=== PATIENT | female | born 1985 | race Caucasian/White ===

== ENCOUNTER 2016-05-08 09:49 | Outpatient (CLI) | payer OTHER | END 2016-05-08 10:33 | disposition home or self-care (01) | LOC: LC 09:49 | PROVIDERS: ATTEND Specialist | PROC: 4A1HXCZ Monitoring of Products of Conception, Cardiac Rate, External Approach (ICD-10-PCS; principal; 2016-05-08) | DX: O24.419 Gestational diabetes mellitus in pregnancy, unspecified control (principal); Z3A.35 35 weeks gestation of pregnancy | CPT/HCPCS: 59025 ==

== ENCOUNTER 2016-05-16 15:41 | Outpatient (CLI) | payer OTHER ==
--- NOTE | 2016-05-16 16:17 | Non Stress Test Report ---
Non Stress Test Datetime Report Generated by CPN: 05/16/2016 16:16 DEMOGRAPHIC EGA NST: 33.5 INDICATION Indication for Study: Diabetes Mellitus; Ordered by Provider VITAL SIGNS Temperature - NST: 98.3 Pulse - NST: 103 RESP - NST: 17 NBPSYS NST: 110 NBPDIA NST: 58 MONITORING Monitor Explained: Monitor Explained; Test Explained; Patient Verbalized Understanding Time on Monitor: 05/08/2016 09:59 Time off Monitor: 05/08/2016 10:31 Time off Monitor: 05/08/2016 10:23 NST Duration: 32 NST INTERVENTIONS NST Interventions: PO Hydration; Oxytocin Challenge Test Physician Notified NST: C Mason CNM BABY A: [id number] BABY A Contraction Frequency : none FHR Baseline : 135 Accelerations : 15X15 Decelerations : None Variability : Moderate 6-25bpm NST Review: Meets Criteria for Reactive NST NST Review and Verified By : Crissy Keating, RN NST Results: Reactive NST REPORT Report Trigger: Send Report
--- NOTE | 2016-05-16 16:44 | Non Stress Test Report ---
Non Stress Test Datetime Report Generated by CPN: 05/16/2016 16:44 DEMOGRAPHIC EGA NST: 34.6 INDICATION Indication for Study: Ordered by Provider MONITORING Monitor Explained: Monitor Explained; Test Explained; Patient Verbalized Understanding Time on Monitor: 05/16/2016 16:18 Time off Monitor: 05/16/2016 16:41 NST Duration: 23 NST INTERVENTIONS NST Interventions: PO Hydration Physician Notified NST: ANDERSON BABY A Movement : Present Contraction Frequency : none FHR Baseline : 135 Accelerations : 15X15 Decelerations : None Variability : Moderate 6-25bpm NST Review: Meets Criteria for Reactive NST NST Review and Verified By : Yumiko Rasmussen RN NST Results: Reactive NST REPORT Report Trigger: Send Report
== END 2016-05-16 16:46 | disposition home or self-care (01) ==
LOC: LC 15:41
PROVIDERS: ATTEND Obstetrics & Gynecology
PROC: 4A1HXCZ Monitoring of Products of Conception, Cardiac Rate, External Approach (ICD-10-PCS; principal; 2016-05-16)
DX: Z34.93 Encounter for supervision of normal pregnancy, unspecified, third trimester (principal); Z36 Encounter for antenatal screening of mother; Z3A.34 34 weeks gestation of pregnancy
CPT/HCPCS: 59025

== ENCOUNTER 2016-06-16 08:37 | Inpatient (IN) | payer OTHER ==
[2016-06-16] MEDS ORDERED: PENICILLIN G-K 5 MILLION UNIT VIAL ONE (08:50)
[2016-06-16] MEDS ORDERED: PENICILLIN G POTASSIUM 5,000,000 UNIT in DEXTROSE 5%-WATER 100 ML IV ONE (08:51)
[2016-06-16] MEDS ORDERED: RINGERS SOLUTION,LACTATED 1,000 ML IV PRN (08:51)
[2016-06-16] MEDS ORDERED: RINGERS SOLUTION,LACTATED 1,000 ML IV ONE (08:51)
[2016-06-16] MEDS ORDERED: OXYTOCIN/NORMAL SALINE 20 UNIT/1,000 ML RTUINJ ONE (08:59)
[2016-06-16] MEDS ORDERED: MISOPROSTOL 0.2 MG TABLET ONE (08:59)
[2016-06-16] MEDS ORDERED: LIDOCAINE 1% INJ-PF (10 MG/ML) 30 ML SDV ONE (08:59)
[2016-06-16 09:48] LABS: APPEARANCE,URINE SLIGHTLY-CLOUDY; BILIRUBIN,URINE NEGATIVE (NEGATIVE); GLUCOSE, URINE NEGATIVE (NEGATIVE); KETONES,URINE NEGATIVE (NEGATIVE); LEUKOCYTE ESTERASE,URINE NEGATIVE (NEGATIVE); NITRITE,URINE NEGATIVE (NEGATIVE); PROTEIN,URINE 100 mg/dL (NEGATIVE); URINE SPECIFIC GRAVITY 1.019; UROBILINOGEN,URINE NEGATIVE mg/dL (<2.0)
[2016-06-16] MEDS ORDERED: BENZOCAINE/MENTHOL AEROSOL SPRAY 56 ML TOP PRN (09:51)
[2016-06-16] MEDS ORDERED: ZOLPIDEM TARTRATE 5 MG TABLET PO PRN (09:51)
[2016-06-16] MEDS ORDERED: DIBUCAINE 1% OINTMENT 28 GM TP PRN (09:51)
[2016-06-16] MEDS ORDERED: MEASLES,MUMPS&RUBELLA VACC/PF 0.5 ML VIAL SUBCUT PRN (09:51)
[2016-06-16] MEDS ORDERED: OXYTOCIN/NORMAL SALINE 1,000 ML IV PRN (09:51)
[2016-06-16] MEDS ORDERED: ACETAMINOPHEN WITH CODEINE #3 TABLET PO PRN (09:51)
[2016-06-16] MEDS ORDERED: DIPH/PERTUSS(ACELL)/TETANUS VAC/PF 0.5 ML SYR (>=10YO) IM PRN (09:51)
[2016-06-16] MEDS ORDERED: ACETAMINOPHEN WITH CODEINE #3 TABLET ONE (09:54)
--- NOTE | 2016-06-16 10:00 | L&D Flow Sheet ---
LD Flowsheet Datetime Report Generated by CPN: 06/16/2016 10:00 Datetime: 06/16/2016 09:45 NBP Sys/Pricila/Mean (mmHg): 127 (QS system process) : 76 (QS system process) : 95 (QS system process) Pulse: 82 (QS system process) Datetime: 06/16/2016 09:25 NBP Sys/Pricila/Mean (mmHg): 107 (QS system process) : 78 (QS system process) : 89 (QS system process) Pulse: 86 (QS system process) Datetime: 06/16/2016 09:23 Vital Signs Stage of : Recovery (Terri Vega RN) Respirations: 18 (Terri Vega RN) Datetime: 06/16/2016 09:13 Membrane Status: Ruptured (Terri Vega RN) Membranes Rupture Method: Spontaneous (Terri Vega RN) Amniotic Fluid Color: Clear (Terri Vega RN) Amniotic Fluid Amount: Small (Terri Vega RN) Amniotic Fluid Odor: Normal (Terri Baidy, RN) Datetime: 06/16/2016 09:12 Communication Communication Comments: Dr Griggs at bedside for delivery (Terri Baidy, RN) Datetime: 06/16/2016 09:09 Vaginal Exam Dilatation (cm): 10.0 (Terri Baidy, RN) Effacement (%): 100 (Terri Baidy, RN) Station: 1 (Terri Baidy, RN) Exam by: H Young RN (Terri Baidy, RN) Datetime: 06/16/2016 09:02 Stage 2 Pushing: Urge to Push (Marleny Young, RN) Datetime: 06/16/2016 08:58 Medications Antibiotics: Penicillin IV (Units) @ 5 million (Marleny Young, RN) Datetime: 06/16/2016 08:53 Communication Communication Comments: Dr Ortiz notified of pt in active labor 6cm, GBS positive and wanting to go natural, quick labor with 1st baby. Dr Ortiz on her way. (Terri Winstonkimberli, RN) Datetime: 06/16/2016 08:51 NBP Sys/Pricila/Mean (mmHg): 120 (QS system process) : 76 (QS system process) : 93 (QS system process) Pulse: 80 (QS system process) Datetime: 06/16/2016 08:48 Vaginal Exam Dilatation (cm): 6.0 (Marleny Vidal RN) Effacement (%): 90 (Marleny Young, RN) Station: 0 (Marleny Vidal RN) Exam by: Rl Vidal RN (Marleny Vidal, NAE)
[2016-06-16 10:15] LABS: URINE BARBITURATES SCREEN NEGATIVE; URINE METHADONE SCREEN NEGATIVE; URINE OPIATES LOW NEGATIVE; URINE PHENCYCLIDINE SCREEN NEGATIVE
[2016-06-16 10:23] LABS: ABSOLUTE LYMPHOCYTES (AUTO) 1.4 10^3/uL (0.5-4.7); ABSOLUTE MONOCYTES (AUTO) 0.4 10^3/uL (0.1-1.4); ABSOLUTE NEUT (AUTO) 9.8 10^3/uL (1.7-8.2); BASOPHILS % (AUTO) 0.2 % (0-2); EOSINOPHILS % (AUTO) 0.2 % (0-6); HEMATOCRIT 38.8 % (36.0-47.0); HEMOGLOBIN 13.1 g/dL (12.0-15.5); HGB HCT DIFFERENCE 0.5; LYMPHOCYTES % (AUTO) 11.8 % (13-45); MEAN CORPUSCULAR HGB CONC 33.7 g/dL (32.0-36.0); MEAN CORPUSCULAR VOLUME 89 fl (80-97); MONOCYTES % (AUTO) 3.1 % (3-13); RED BLOOD COUNT 4.35 10^6/uL (3.72-5.28); RED CELL DISTRIBUTION WIDTH 13.9 % (11.5-14.0); SEGMENTED NEUTROPHILS % (AUTO) 84.7 % (42-78); WHITE BLOOD COUNT 11.5 10^3/uL (4.0-10.5)
--- NOTE | 2016-06-16 12:13 | Admission Physical ---
Datetime Report Generated by CPN: 06/16/2016 12:10 CURRENT ADMISSION Chief Complaint: Uterine Contractions Indication for Induction: Not Applicable Admit Plan: Admit to Unit; Initiate Labor Protocol ALLERGIES Medication Allergies: No Medication Allergies: No Known Allergies (05/16/2016) Medication Allergies: No Known Allergies (05/08/2016) Medication Allergies: No Known Allergies (01/18/2014) Latex: No Latex Allergies OBSTETRICAL HISTORY EDC: 06/21/2016 00:00 : 2 Para: 1 Para: 1 Term: 1 : 0 SAB: 0 IAB: 0 Ectopic: 0 Livin Cesareans: 0 VBACs: 0 Multiple Births: 0 Gestational Diabetes: Yes Rh Sensitization: No Incompetent Cervix: No ROD: No Infertility: No ART Treatment: No Uterine Anomaly: No IUGR: No Hx Previous C/S: No Macrosomia: No Hx Loss/Stillborn: No PIH: No Hx : No Placenta Previa/Abruption: No Depression/PP Depression: No PTL/PROM: No Post Hemorrhage: No Current Procedures: Ultrasound; NST Obstetrical History Comments: G1_2 - GDM SEE RECORDS Alcohol: No Marijuana : No Cocaine: No Other Illicit Drugs: No Cigarettes: Never Smoker. 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23 PHYSICAL EXAM General: Normal HEENT: Normal Neurologic: Normal Thyroid: Deferred Heart: Normal Lungs: Normal Breast: Deferred Back: Normal Abdomen: Normal Genitourinary Exam: Normal Extremities: Normal DTRs: Normal Pelvic Type: Adequate Vital Signs: Reviewed VAGINAL EXAM Dilatation: 10 Effacement: 100 Station: 1 MEMBRANES Membranes: Intact FETUS A EGA: 39.2 Monitoring: External US FHR- Baseline: 140 Variability: Moderate 6-25bpm Accelerations: 15X15 Decelerations: None FHR Category: Category I PLANS FOR LABOR AND DELIVERY Labor and Delivery: None Pain Management: Natural Feeding Preference: Breast Benefit of Breast Feed Discussed: Yes Circumcision: N/A INFORMED CONSENT Signature: with User ID: Nadir
[2016-06-16] MEDS ORDERED: PENICILLIN G POTASSIUM 2,500,000 UNIT in DEXTROSE 5%-WATER 50 ML IV SCH (12:52)
[2016-06-16] MEDS: IBUPROFEN 800 MG TABLET PO SCH ×2 (13:50→21:50)
[2016-06-16] MEDS: SENNOSIDES/DOCUSATE 8.6-50 MG 1 EACH TABLET PO SCH (17:23)
[2016-06-16] MEDS: PRENATAL VITAMIN W-O CA NO5/FE FUMARATE/FA CAPSULE PO SCH (17:23)
[2016-06-16] MEDS: FERROUS SULFATE 325 MG TABLET PO SCH ×2 (17:23→17:53)
[2016-06-16] MEDS: DOCUSATE SODIUM 100 MG CAPSULE PO SCH ×2 (17:23→17:53)
--- NOTE | 2016-06-16 19:00 | L&D Flow Sheet ---
LD Flowsheet Datetime Report Generated by CPN: 06/16/2016 19:00 Datetime: 06/16/2016 11:00 NBP Sys/Pricila/Mean (mmHg): 102 (QS system process) : 58 (QS system process) : 72 (QS system process) Pulse: 73 (QS system process) Datetime: 06/16/2016 10:45 NBP Sys/Pricila/Mean (mmHg): 115 (QS system process) : 66 (QS system process) : 85 (QS system process) Pulse: 72 (QS system process) Datetime: 06/16/2016 10:30 NBP Sys/Pricila/Mean (mmHg): 116 (QS system process) : 65 (QS system process) : 84 (QS system process) Pulse: 71 (QS system process) Datetime: 06/16/2016 10:15 NBP Sys/Pricila/Mean (mmHg): 114 (QS system process) : 62 (QS system process) : 83 (QS system process) Pulse: 69 (QS system process) Datetime: 06/16/2016 10:00 NBP Sys/Pricila/Mean (mmHg): 124 (QS system process) : 80 (QS system process) : 97 (QS system process) Pulse: 75 (QS system process) Datetime: 06/16/2016 09:45 NBP Sys/Pricila/Mean (mmHg): 127 (QS system process) : 76 (QS system process) : 95 (QS system process) Pulse: 82 (QS system process) Pain Pain Scale: 3 (Marleny Young, RN) Pain Presence: Intermittent (Marleny Young, RN) Pain Type: Cramping (Marleny Young, RN) Pain Location: Abdomen (Marleny Young, RN) Pain Goal: 1 (Marleny Young, RN) Datetime: 06/16/2016 09:25 NBP Sys/Pricila/Mean (mmHg): 107 (QS system process) : 78 (QS system process) : 89 (QS system process) Pulse: 86 (QS system process) Datetime: 06/16/2016 09:23 Vital Signs Stage of : Recovery (Terri Baidy, RN) Respirations: 18 (Terri Baidy, RN) Datetime: 06/16/2016 09:13 Membrane Status: Ruptured (Terri Vega, RN) Membranes Rupture Method: Spontaneous (Terri Vega, RN) Amniotic Fluid Color: Clear (Terri Vega, RN) Amniotic Fluid Amount: Small (Terri Winstondy, RN) Amniotic Fluid Odor: Normal (Terri Vega, RN) Datetime: 06/16/2016 09:12 Communication Communication Comments: Dr Griggs at bedside for delivery (Terri Tishdy, RN) Datetime: 06/16/2016 09:09 Vaginal Exam Dilatation (cm): 10.0 (Terri Baidy, RN) Effacement (%): 100 (Terri Baidy, RN) Station: 1 (Terri Baidy, RN) Exam by: H Young RN (Terri Baidy, RN) Datetime: 06/16/2016 09:02 Stage 2 Pushing: Urge to Push (Marleny Young, RN) Datetime: 06/16/2016 08:58 Medications Antibiotics: Penicillin IV (Units) @ 5 million (Marleny Young, RN) Datetime: 06/16/2016 08:53 Communication Communication Comments: Dr Ortiz notified of pt in active labor 6cm, GBS positive and wanting to go natural, quick labor with 1st baby. Dr Ortiz on her way. (Terri Baidy, RN) Datetime: 06/16/2016 08:51 NBP Sys/Pricila/Mean (mmHg): 120 (QS system process) : 76 (QS system process) : 93 (QS system process) Pulse: 80 (QS system process) Datetime: 06/16/2016 08:48 Vaginal Exam Dilatation (cm): 6.0 (Marleny Vidal RN) Effacement (%): 90 (Marleny Vidal RN) Station: 0 (Marleny Vidal RN) Exam by: Rl Vidal RN (Marleny Vidal, RN)
[2016-06-16] MEDS: ACETAMINOPHEN WITH CODEINE #3 TABLET PO PRN (23:10)
[2016-06-17] MEDS: IBUPROFEN 800 MG TABLET PO SCH ×3 (05:07→21:18)
--- NOTE | 2016-06-17 06:00 | L&D Current Admission ---
Current Admit Datetime Report Generated by CPN: 06/17/2016 06:00 ADMISSION INFORMATION Current Admit Date/Time: 06/16/2016 09:00 (06/16/2016 09:00:Marleny Vidal RN) Reason for Admission: Onset of Labor (06/16/2016 09:00:Marleny Vidal RN) EGA per Dates: 39.2 (06/16/2016 09:00:QS system process) Method of Arrival: Ambulatory (06/16/2016 09:00:Marleny Vidal RN) Admitted From: Home (06/16/2016 09:00:Marleny Vidal RN) Reason for Induction: Not Applicable (06/16/2016 09:00:Marleny Vidal RN) Records Available: Yes (06/16/2016 09:00:Marleny Vidal RN) General Admission Information: Reviewed; Updated; Confirmed (06/16/2016 09:00:Marleny Vidal RN) General Admission Reviewed By: Aliza Vidal RN (06/16/2016 09:00:Marleny Vidal RN) BELONGINGS/ADVANCED DIRECTIVES Other Belongings: see valuable consent (06/16/2016 09:00:Marleny Vidal RN) Disposition of Belongings: Kept with Patient (06/16/2016 09:00:Marleny Vidal RN) Advance Direct for Healthcare: No, and Wants No Information (06/16/2016 09:00:Marleny Vidal RN) Durable Power of Patcher: No (06/16/2016 09:00:Marleny Vidal RN) Living Will: No (06/16/2016 09:00:Marleny Vidal RN) Organ Donor: Yes (06/16/2016 09:00:Marleny Vidal RN) Pt Rights Information Given: Yes (06/16/2016 09:00:Marleny Vidal RN) Pt Understands Pt Rights: Yes (06/16/2016 09:00:Marleny Vidal RN) LEARNING ASSESSMENT Knowledge Level: Understands L_D Process (06/16/2016 09:00:Marleny Vidal RN) Barriers to Learning: None (06/16/2016 09:00:Marleny Vidal RN) Learning Readiness: Unable to Participate (06/16/2016 09:00:Marleny Vidal RN) Learns Best By: 1 to 1 Instruction; Demonstration (06/16/2016 09:00:Marleny Vidal RN) Learning Needs: Labor and Delivery Process; Symptoms to Report (06/16/2016 09:00:Marleny Vidal RN) DOMESTIC VIOLANCE SCREENING Dom Viol Threatened/Hurt: No (06/16/2016 09:00:Marleny Vidal RN) Hx of Abuse/Neglect past 2yrs: No (06/16/2016 09:00:Marleny Vidal RN) Feel Unsafe Going Home: No (06/16/2016 09:00:Marleny Vidal RN) Addt'l Observ Indicating Abuse: No (06/16/2016 09:00:Marleny Vidal RN) Reason Unable to Complete Screen: N/A, Screen Completed (06/16/2016 09:00:Marleny Vidal RN) Considered Personal Harm/Suicide: No (06/16/2016 09:00:Marleny Vidal RN) NUTRITIONAL/FUNCTIONAL SCREENING Problem with Appetite >5 Days: No (06/16/2016 09:00:Marleny Vidal RN) Chew/Swallow Difficulties: No (06/16/2016 09:00:Marleny Vidal RN) Inappropriate Wt Gain/Loss: No (06/16/2016 09:00:Marleny Vidal RN) Presence Skin Breakdown/Ulcer: No (06/16/2016 09:00:Marleny Vidal RN) Special Diet: No (06/16/2016 09:00:Marleny Vidal RN) Pt Requests Cell Attendant Visit: No (06/16/2016 09:00:Marleny Vidal RN) Hx of Any of the Following?: N/A (06/16/2016 09:00:Marleny Vidal RN) New Diagnosis of: N/A (06/16/2016 09:00:Marleny Vidal RN) Requires Assist w/Ambulation: No (06/16/2016 09:00:Marleny Vidal RN) Uses Assist Device to Ambulate: No (06/16/2016 09:00:Marleny Vidal RN) Pt Requires Help w/ADL's: No (06/16/2016 09:00:Marleny Vidal RN)
--- NOTE | 2016-06-17 06:00 | L&D General Admission ---
General Admit Datetime Report Generated by CPN: 06/17/2016 06:00 INFORMATION Patient Age: 30 (05/08/2016 09:49:QS system process) EDC: 06/21/2016 00:00 (05/08/2016 09:57:TORRES Allen) : 2 (05/08/2016 09:57:TORRES Allen) Para: 1 (05/08/2016 10:47:Renae Phillips RN) Term: 1 (05/08/2016 09:57:TORRES Allen) : 0 (05/08/2016 09:57:TORRES Allen) Spontaneous Abortions: 0 (05/08/2016 09:57:TORRES Allen) Induced Abortions: 0 (05/08/2016 09:57:TORRES Allen) Livin (05/08/2016 09:57:TORRES Allen) Cesareans: 0 (05/08/2016 09:57:TORRES Allen) VBACs: 0 (05/08/2016 09:57:TORRES Allen) Ectopic: 0 (05/08/2016 09:57:Rosita Shah [facility]) Multiple Births: 0 (05/08/2016 09:57:Rosita Shah [facility]) Baby, Number in Womb: 1 (05/08/2016 10:47:Rosita Shah [facility]) CARE Primary Manager [facility] (05/08/2016 09:57:Rosita Shah [facility]) Month of 1st Visit: September (05/08/2016 09:57:Rosita Shah [facility]) Adequate Care: Yes (05/08/2016 09:57:Rosita Shah [facility]) Prepregnancy Weight (lb): 185 (05/08/2016 09:57:Rosita Shah [facility]) Prepregnancy Weight (kg): 84.1 (05/08/2016 09:57:QS system process) Height (in): 70 (05/08/2016 10:10:QS system process) ALLERGIES Medication Allergy: No (05/08/2016 09:57:Rosita Shah RNC) Medication Allergies: No Known Allergies (05/16/2016) (05/16/2016 16:27:QS system process) Latex Allergy: No Latex Allergies (05/08/2016 09:57:Rosita Camp, RNC) COMMUNICATION Primary Language: Portuguese (05/08/2016 09:57:Rosita Camp, RNC) Medical Tx Preferred Language: Portuguese (05/08/2016 09:57:Rosita Camp, RNC) Communication Barrier(s): None (05/08/2016 09:57:Rosita Camp, RNC) DEMOGRAPHICS Address: [address] [place] [id number] (05/08/2016 09:49:QS system process) Zipcode: [address] (05/08/2016 09:49:QS system process) Home (05/08/2016 09:49:QS system process) SSN: [id number] (05/08/2016 09:49:QS system process) Next of Kin Name: BLAKEBENJAMIN DORANLEY (05/08/2016 09:49:QS system process) Next of Kin (05/08/2016 09:49:QS system process) Next of Kin Relationship: SPO (05/08/2016 09:49:QS system process) Date of : 1985 (05/08/2016 09:49:QS system process) Marital Status: (05/08/2016 09:49:QS system process) Sex: Female (05/08/2016 09:49:QS system process) Occupation: Homemaker (05/08/2016 09:57:TORRES Allen) Race: (05/08/2016 09:49:QS system process) Ethnicity: Non- or (05/08/2016 09:49:QS system process) Confucianism: None (05/08/2016 09:49:QS system process) Education: 16 (05/08/2016 09:57:TORRES Allen) FOB Involved: Yes (05/08/2016 09:57:Rosita Shah RNC) DRUG AND ALCOHOL USE Alcohol: No (05/08/2016 09:57:Rosita Camp, RNC) Cigarettes: Never Smoker. [id number] (05/08/2016 09:57:Rosita Camp, RNC) Marijuana: No (05/08/2016 09:57:Rosita Shah, RNC) Cocaine: No (05/08/2016 09:57:Rosita Camp, RNC) Other Illicit Drugs: No (05/08/2016 09:57:Rosita Camp, RNC) VACCINE HISTORY Influenza Vaccine: No (05/08/2016 09:57:[facility], [facility]) Influenza Date: (05/08/2016 09:57:[facility]) Pneumococcal Vaccine: No (05/08/2016 09:57:[facility]) Tetanus Vaccine: Yes (05/08/2016 09:57:[facility]) Tdap Vaccine: Yes (05/08/2016 09:57:[facility]) Hepatitis B Vaccine: Yes (05/08/2016 09:57:[facility]) Hepatitis B Vaccine Date : 1999 (05/08/2016 09:57:[facility]) Asphalt Blender: [facility] (05/08/2016 09:57:[facility]) Feeding Preference: Breast (05/08/2016 09:57:[facility]) Benefit of Breast Feed Discussed: Yes (05/08/2016 09:57:[facility]) Circumcision: N/A (05/08/2016 09:57:[facility]) Classes Attended: No (05/08/2016 09:57:[facility]) Tubal Ligation: No (05/08/2016 09:57:TORRES Allen) Tubal Authorization Signed: N/A (05/08/2016 09:57:TORRES Allen) Consent: N/A (05/08/2016 09:57:TORRES Allen) Consent Signed: N/A (05/08/2016 09:57:TORRES Allen) Pain Management Plans: Natural (05/08/2016 09:57:TORRES Allen) Plans for Labor and Delivery: None (05/08/2016 09:57:TORRES Allen) Support Person: Blake Glez (05/08/2016 09:57:TORRES Allen) Support Person Relationship: (05/08/2016 09:57:TORRES Allen) Cultural/Spritual Practice: No (05/08/2016 09:57:TORRES Allen) Spir/Cult Dietary Needs: No (05/08/2016 09:57:TORRES Allen) LIVING SITUATION/DISCHARGE PLAN Living Arrangements: House (05/08/2016 09:57:TORRES Allen) Adequate Access to:: Electric; Heat; Refrigeration; Plumbing/Running water; Phone; Transportation (05/08/2016 09:57:TORRES Allen) WIC Program: No (05/08/2016 09:57:TORRES Allen) Discharge Dipper And Drier Person: Blake Glez (05/08/2016 09:57:TORRES Allen) Person to Help after Discharge: Blake Glez (05/08/2016 09:57:TORRES Allen) Currently Using Commun Resources: N/A (05/08/2016 09:57:TORRES Allen) Outside Agency/Job Site Supervisor: N/A (05/08/2016 09:57:TORRES Allen) Car Seat for Discharge: Yes (05/08/2016 09:57:TORRES Allen) Adoption Requested: No (05/08/2016 09:57:TORRES Allen) Pt Contact w/ Post : N/A (05/08/2016 09:57:TORRES Allen) LABS Blood Type: A Positive (05/08/2016 09:57:TORRES Allen) Antibody Screen: negative (05/08/2016 09:57:TORRES Allen) Hemoglobin: 13.1 (06/16/2016 10:01:QS system process) Hematocrit: 38.8 (06/16/2016 10:01:QS system process) MCV: 89 (06/16/2016 10:01:QS system process) Group Beta Strep: positive (05/08/2016 09:57:TORRES Allen) Gonorrhea: Negative (05/08/2016 09:57:TORRES Allen) Chlamydia: Negative (05/08/2016 09:57:TORRES Allen) RPR/VDRL: Nonreactive (05/08/2016 09:57:TORRES Allen) HIV Results: negative (05/08/2016 09:57:TORRES Allen) Hepatitis B: Negative (05/08/2016 09:57:TORRES Allen) Rubella: Immune (05/08/2016 09:57:TORRES Allen) OB/PREVIOUS HISTORY Previous Procedures: Ultrasound; NST (05/08/2016 09:57:TORRES Allen) Current Procedures: Ultrasound; NST (05/08/2016 09:57:TORRES Allen) History of Previous : No (05/08/2016 09:57:TORRES Allen) History of Gestational Diabetes: Yes (05/08/2016 09:57:TORRES Allen) History of PIH: No (05/08/2016 09:57:TORRES Allen) History of Incompetent Cervix: No (05/08/2016 09:57:TORRES Allen) History of Placenta Previa/Abrup: No (05/08/2016 09:57:TORRES Allen) History of Macrosomia: No (05/08/2016 09:57:TORRES Allen) History of IUGR: No (05/08/2016 09:57:TORRES Allen) History of Hemorrhage: No (05/08/2016 09:57:TORRES Allen) History of Loss/Stillborn: No (05/08/2016 09:57:TORRES Allen) History of : No (05/08/2016 09:57:TORRES Allen) History of D (Rh) Sensitization: No (05/08/2016 09:57:TORRES Allen) History Recurrent Loss/Stillborn: No (05/08/2016 09:57:TORRES Allen) History Depression/PP Depression: No (05/08/2016 09:57:TORRES Allen) History of Uterine Anomaly/ROD: No (05/08/2016 09:57:TORRES Allen) History of Infertility: No (05/08/2016 09:57:TORRES Allen) History of ART Treatment: No (05/08/2016 09:57:TORRES Allen) History of ROD: No (05/08/2016 09:57:TORRES Allen) Comments Obstetrical History: G1_2 - GDM (05/08/2016 09:57:TORRES Allen) MEDICAL HISTORY Med Hx Diabetes: No (05/08/2016 09:57:TORRES Allen) Diabetes Type: Gestational Diabetes (05/08/2016 09:57:TORRES Allen) Med Hx Hypertension: No (05/08/2016 09:57:TORRES Allen) Med Hx Heart Disease: No (05/08/2016 09:57:TORRES Allen) Med Hx Autoimmune Disorder: No (05/08/2016 09:57:TORRES Allen) Med Hx Kidney Disease/UTI: No (05/08/2016 09:57:TORRES Allen) Med Hx Neurologic/Epilepsy: Yes (05/08/2016 09:57:TORRES Allen) Med Hx Psychiatric Disorders: No (05/08/2016 09:57:TORRES Allen) Med Hx Hepatitis/Liver Disease: No (05/08/2016 09:57:TORRES Allen) Med Hx Varicosities/Phlebitis: No (05/08/2016 09:57:TORRES Allen) Med Hx Thyroid Dysfunction: No (05/08/2016 09:57:TORRES Allen) Med Hx Trauma/Violence: No (05/08/2016 09:57:TORRES Allen) Med Hx Blood Transfusion: No (05/08/2016 09:57:TORRES Allen) Med Hx Pulmonary (Asthma,TB): No (05/08/2016 09:57:TORRES Allen) Med Hx Breast: No (05/08/2016 09:57:TORRES Allen) Med Hx BURNER SHAFT Surgery: Yes (05/08/2016 09:57:TORRES Allen) Med Hx Hospitalization/Surgery: Yes (05/08/2016 09:57:TORRES Allen) Med Hx Anesthetic Complications: No (05/08/2016 09:57:TORRES Allen) Med Hx Abnormal Pap Smear: Yes (05/08/2016 09:57:TORRES Allen) Other Medical Diseases: No (05/08/2016 09:57:TORRES Allen) Med Hx Significant Family Hx: No (05/08/2016 09:57:TORRES Allen) Details of Med/Surg Hx: GDM both , abnormal pap with colpo x3 [id number], hospitalized for childbirth. H/O chidhood epilepsy until age 7 (05/08/2016 09:57:TORRES Allen) INFECTIOUS HISTORY Inf Hx Gonorrhea: No (05/08/2016 09:57:TORRES Allen) Inf Hx Chlamydia: No (05/08/2016 09:57:TORRES Allen) Inf Hx Syphilis: No (05/08/2016 09:57:TORRES Allen) Inf Hx HIV/AIDS: No (05/08/2016 09:57:TORRES Allen) Inf Hx Human Papilloma Virus: Yes (05/08/2016 09:57:TORRES Allen) Inf Hx Pt/Partner Genital Herpes: No (05/08/2016 09:57:TORRES Allen) Inf Hx Tuberculosis/Exposure: No (05/08/2016 09:57:TORRES Allen) Inf Hx Hepatitis B,C: No (05/08/2016 09:57:TORRES Allen) Inf Hx Rash or Viral Illness: No (05/08/2016 09:57:TORRES Allen) Details of Infectious Hx: HPV age 18 and 23 (05/08/2016 09:57:TORRES Allen) GENETIC HISTORY Gen Hx Age >=35 at ALYSSA: No (05/08/2016 09:57:TORRES Allen) Gen Hx Thalassemia: No (05/08/2016 09:57:TORRES Allen) Gen Hx Congenital Heart Defect: No (05/08/2016 09:57:Rosita Shah [facility]) Gen Hx Neural Tube Defect: No (05/08/2016 09:57:TORRES Allen) Gen Hx Down's Syndrome: No (05/08/2016 09:57:TORRES Allen) Gen Hx Niles-Sachs: No (05/08/2016 09:57:TORRES Allen) Gen Hx Zackery: No (05/08/2016 09:57:TORRES Allen) Gen Hx Familial Dysautonomia: No (05/08/2016 09:57:TORRES Allen) Gen Hx Sickle Cell Disease/Trait: No (05/08/2016 09:57:TORRES Allen) Gen Hx Hemophilia/Blood Disorder: No (05/08/2016 09:57:TORRES Allen) Gen Hx Muscular Dystrophy: No (05/08/2016 09:57:TORRES Allen) Gen Hx Cystic Fibrosis: No (05/08/2016 09:57:TORRES Allen) Gen Hx Huntingtons Chorea: No (05/08/2016 09:57:TORRES Allen) Gen Hx Mental Retardation/Autism: No (05/08/2016 09:57:TORRES Allen) Gen Hx Tested for Fragile X: No (05/08/2016 09:57:TORRES Allen) Gen Hx Other Inher/Chromosomal: No (05/08/2016 09:57:TORRES Allen) Gen Hx Maternal Metabolic DO: No (05/08/2016 09:57:TORRES Allen) Gen Hx Pt Father or FOB Defect: No (05/08/2016 09:57:TORRES Allen) Gen Hx Other Genetic History: No (05/08/2016 09:57:TORRES Allen) Gen Hx Drugs/Meds since LMP: No (05/08/2016 09:57:TORRES Allen)
--- NOTE | 2016-06-17 06:15 | L&D Care Plan ---
LD CARE PLANS Datetime Report Generated by CPN: 06/17/2016 06:15 Datetime: 06/16/2016 08:58 Pain State: Risk For (Ileana Rasmussen RN) Related To: Labor and Delivery Process; Disease Process; Treatment and Procedures (Ileana Rasmussen RN) Goal(s): Patients Pain will be Assessed and Managed; Patient will Verbalize Adequate Relief of Pain or the Ability to [place] with Current Pain (Ileana Rasmussen RN) Interventions: Assess Pain Severity on Scale of 0 (None) to 5 (Severe); Assess Type, Location and Intensity of Pain Each Time Client Reports Discomfort and Notify Provider if Unusal Pain Develops; Encourage Proper Breathing and Relaxation Techniques; Offer Alternatives Such as Repositioning, Calm Environment, Massages, Diversional Activities, Ice Pack, Splinting, and Ambulation; Administer Analgesics as Ordered; Assist with Epidural Placement as Appropriate; Evaluate Therapeutic Effectiveness of Medication and Treatments (Ileana Rasmussen RN) Outcome: Patient will Report Absence or Relief of Pain Consistent with Established Pain Goal (Ileana Rasmussen RN) Status: Ongoing (Ileana Rasmussen RN) Outcome: Patient will have a Decrease in Signs and Symptoms of Discomfort (Ileana Rasmussen RN) Status: Ongoing (Ileana Rasmussen RN) Outcome: Pain will be Controlled During Procedures (Ileana Rasmussen RN) Status: Ongoing (Ileana Rasmussen RN) Anxiety State: Risk For (Ileana Rasmussen RN) Related To: Labor and Delivery Process; Situational Crisis; Medical Interventions; Significant Life Event (Ileana Rasmussen RN) Goal(s): Patient will have Decreased Anxiety and be able to Function at Acceptable Levels (Ileana Rasmussen RN) Interventions: Assess Verbal and Nonverbal Behavioral Indicators of Anxiety; Assist Patient to Identify and Verbalize Symptoms of Anxiety; Identify and Demonstrate Techniques to Control Anxiety; Assist Patient with Coping Mechanisms to Manage Anxiety; Provide Theraputic Touch for the Patient; Explain to Patient, Using a Calm Reassuring Approach and Nonmedical Terms, All Activities, Procedures, and Concerns; Instruct Patient and Family about Post Discharge Care, Limitations, Symptoms to Report and Resources Available (Ileana Rasmussen RN) Outcome: Patient will Identify, Verbalize and Demonstrate Techniques to Control Anxiety (Ileana Rasmussen RN) Status: Ongoing (Ileana Rasmussen RN) Outcome: Patient's Posture, Facial Expressions, Gestures and Activity Level will Reflect Decreased Anxiety (Ileana Rasmussen RN) Status: Ongoing (Ileana Rasmussen RN) Outcome: Patient will Verbalize a Sense of Control and/or Acceptance of the Situation (Ileana Rasmussen RN) Status: Ongoing (Ileana Rasmussen RN) Outcome: Patient will Identify and Utilize Support Person (Ileana Rasmussen RN) Status: Ongoing (Ileana Rasmussen RN) Knowledge Deficit State: Risk For (Ileana Rasmussen RN) Related To: Labor and Delivery Process; Treatment and Procedures; Impending Alterations in Family Dynamics (Ileana Rasmussen RN) Goal(s): Patient will Accurately Verbalize Understanding of Plan of Care and Treatment; Patient and Family will Accurately Verbalize Understanding of the Disease Process (Ileana Rasmussen RN) Interventions: Assess Motivation and Willingness of Patient/Family to Learn; Assess Preferred Learning Mode: One to One Instruction, Reading, Videos, Group Discussion or Demonstration; Assess Barriers to Learning: Pain, Emotional State, Language Barrier, Cognitive Impairment, Visual or Hearing Deficits; Assess Patient and Family Knowledge of Disease Process, Medications and Treatment; Discuss Therapy and/or Treatment Options, Describe Rationale Behind Management, Therapy and Treatment Recommendations; Instruct Patient and Family on Signs and Symptoms to Report; Instruct Patient and Family on Medication Effects and Side Effects; Provide Appropriate and Timely Education Using Multiple Techniques; Provide Patient and Family with Support Group Information and Resources; Give Clear and Thorough Explanations and Demonstrations (Ileana Rasmussen RN) Outcome: Patient and Family will Verbalize Understanding of Condition, Treatment and Signs and Symptoms to Report (Ileana Rasmussen RN) Status: Ongoing (Ileana Rasmussen RN) Outcome: Patient will Identify Perceived Learning Needs and Express Motivation to Learn (Ileana Rasmussen RN) Status: Ongoing (Ileana Rasmussen RN) Outcome: Patient will Verbalize Understanding of Desired Content, and/or Performs Desired Skill Prior to Discharge (Ileana Rasmussen RN) Status: Ongoing (Ileana Rasmussen RN) Infection State: Risk For (Ileana Rasmussen RN) Related To: Invasive Procedures (Ileana Rasmussen RN) Goal(s): The Patient will be Free of Infection, Vital Signs Stable and Lab Work within Normal Parameters (Ileana Rasmussen RN) Interventions: Instruct and Reinforce Proper Handwashing, Hygiene, and Care Techniques to Patient and Family; Monitor Vital Signs; Monitor Patient for the Following Signs of Infection: Fever, Abdominal Tenderness, Unusual Discharge; Monitor Aminiotic Fluid, Urine and Lochia for Color and Odor; Observe Wounds, Incisions and Invasive Line Sites for Redness, Drainage and Edema; Assess IV Sites per Hospital Policy; Monitor Lab and Test Results and Notify Provider of Abnormal Findings; Assess Nutritional Status and Promote Good Nutrition (Ileana Rasmussen RN) Outcome: Patient will Remain Free of Infection (Ileana Rasmussen RN) Status: Ongoing (Ileana Rasmussen RN) Outcome: Infection will be Recognized Early to Allow for Prompt Treatment (Ileana Rasmussen RN) Status: Ongoing (Ileana Rasmussen RN) Outcome: Patient will have Vital Signs Within Expected Range (Ileana Rasmussen RN) Status: Ongoing (Ileana Rasmussen RN) Impaired Skin Integrity State: Risk For (Ileana Rasmussen RN) Related To: Vaginal Delivery (Ileana Rasmussen RN) Goal(s): Patient will Maintain Optimal Skin Integrity, Free of Breakdown, Injury or Infection (Ileana Rasmussen RN) Interventions: Complete Screening for Pressure Ulcer Risk and Initiate Protocol per Hospital Policy; Monitor Site of Skin Impairment for Color Changes, Redness, Swelling, Warmth, Pain or Other Signs of Infection; Encourage and Assist with Position Changes; Monitor Patient's Mobility Status; Provide Adequate Nutrition and Fluids; Teach Patient Appropriate Hygienic Care; Teach Patient/Family Skin Care Management (Ileana Rasmussen RN) Outcome: Patient will not have Evidence of Injury Such as Skin Breakdown, Scrapes, Cuts, or Bruising (Ileana Rasmussen RN) Status: Ongoing (Ileana Rasmussen RN) Outcome: Patient will Report Any Altered Sensation or Pain at Site of Skin Impairment (Ileana Rasmussen RN) Status: Ongoing (Ileana Rasmussen RN) Outcome: Patients Incisions and Wounds will be without Signs or Symptoms of Infection (Ileana Rasmussen RN) Status: Ongoing (Ileana Rasmussen RN) Outcome: Patient will Demonstrate Understanding of Plan to Heal Skin and Prevent Reinjury and Verbalize Risk Factors (Ileana Rasmussen RN) Status: Ongoing (Ileana Rasmussen RN) Datetime: 06/16/2016 08:56 Pain State: Risk For (Ileana Rasmussen RN) Related To: Labor and Delivery Process; Disease Process; Treatment and Procedures (Ileana Rasmussen RN) Goal(s): Patients Pain will be Assessed and Managed; Patient will Verbalize Adequate Relief of Pain or the Ability to [place] with Current Pain (Ileana Rasmussen RN) Interventions: Assess Pain Severity on Scale of 0 (None) to 5 (Severe); Assess Type, Location and Intensity of Pain Each Time Client Reports Discomfort and Notify Provider if Unusal Pain Develops; Encourage Proper Breathing and Relaxation Techniques; Offer Alternatives Such as Repositioning, Calm Environment, Massages, Diversional Activities, Ice Pack, Splinting, and Ambulation; Administer Analgesics as Ordered; Assist with Epidural Placement as Appropriate; Evaluate Therapeutic Effectiveness of Medication and Treatments (Ileana Rasmussen RN) Outcome: Patient will Report Absence or Relief of Pain Consistent with Established Pain Goal (Ileana Rasmussen RN) Status: Ongoing (Ileana Rasmussen RN) Outcome: Patient will have a Decrease in Signs and Symptoms of Discomfort (Ileana Rasmussen RN) Status: Ongoing (Ileana Rasmussen RN) Outcome: Pain will be Controlled During Procedures (Ileana Rasmussen RN) Status: Ongoing (Ileana Rasmussen RN) Anxiety State: Risk For (Ileana Rasmussen RN) Related To: Labor and Delivery Process; Situational Crisis; Medical Interventions; Significant Life Event (Ileana Rasmussen RN) Goal(s): Patient will have Decreased Anxiety and be able to Function at Acceptable Levels (Ileana Rasmussen RN) Interventions: Assess Verbal and Nonverbal Behavioral Indicators of Anxiety; Assist Patient to Identify and Verbalize Symptoms of Anxiety; Identify and Demonstrate Techniques to Control Anxiety; Assist Patient with Coping Mechanisms to Manage Anxiety; Provide Theraputic Touch for the Patient; Explain to Patient, Using a Calm Reassuring Approach and Nonmedical Terms, All Activities, Procedures, and Concerns; Instruct Patient and Family about Post Discharge Care, Limitations, Symptoms to Report and Resources Available (Ileana Rasmussen RN) Outcome: Patient will Identify, Verbalize and Demonstrate Techniques to Control Anxiety (Ileana Rasmussen RN) Status: Ongoing (Ileana Rasmussen RN) Outcome: Patient's Posture, Facial Expressions, Gestures and Activity Level will Reflect Decreased Anxiety (Ileana Rasmussen RN) Status: Ongoing (Ileana Rasmussen RN) Outcome: Patient will Verbalize a Sense of Control and/or Acceptance of the Situation (Ileana Rasmussen RN) Status: Ongoing (Ileana Rasmussen RN) Outcome: Patient will Identify and Utilize Support Person (Ileana Rasmussen RN) Status: Ongoing (Ileana Rasmussen RN) Knowledge Deficit State: Risk For (Ileana Rasmussen RN) Related To: Labor and Delivery Process; Treatment and Procedures; Impending Alterations in Family Dynamics (Ileana Rasmussen RN) Goal(s): Patient will Accurately Verbalize Understanding of Plan of Care and Treatment; Patient and Family will Accurately Verbalize Understanding of the Disease Process (Ileana Rasmussen RN) Interventions: Assess Motivation and Willingness of Patient/Family to Learn; Assess Preferred Learning Mode: One to One Instruction, Reading, Videos, Group Discussion or Demonstration; Assess Barriers to Learning: Pain, Emotional State, Language Barrier, Cognitive Impairment, Visual or Hearing Deficits; Assess Patient and Family Knowledge of Disease Process, Medications and Treatment; Discuss Therapy and/or Treatment Options, Describe Rationale Behind Management, Therapy and Treatment Recommendations; Instruct Patient and Family on Signs and Symptoms to Report; Instruct Patient and Family on Medication Effects and Side Effects; Provide Appropriate and Timely Education Using Multiple Techniques; Provide Patient and Family with Support Group Information and Resources; Give Clear and Thorough Explanations and Demonstrations (Ileana Rasmussen RN) Outcome: Patient and Family will Verbalize Understanding of Condition, Treatment and Signs and Symptoms to Report (Ileana Rasmussen RN) Status: Ongoing (Ileana Rasmussen RN) Outcome: Patient will Identify Perceived Learning Needs and Express Motivation to Learn (Ileana Rasmussen RN) Status: Ongoing (Ileana Rasmussen RN) Outcome: Patient will Verbalize Understanding of Desired Content, and/or Performs Desired Skill Prior to Discharge (Ileana Rasmussen RN) Status: Ongoing (Ileana Rasmussen RN) Infection State: Risk For (Ileana Rasmussen RN) Related To: Invasive Procedures (Ileana Rasmussen RN) Goal(s): The Patient will be Free of Infection, Vital Signs Stable and Lab Work within Normal Parameters (Ileana Rasmussen RN) Interventions: Instruct and Reinforce Proper Handwashing, Hygiene, and Care Techniques to Patient and Family; Monitor Vital Signs; Monitor Patient for the Following Signs of Infection: Fever, Abdominal Tenderness, Unusual Discharge; Monitor Aminiotic Fluid, Urine and Lochia for Color and Odor; Observe Wounds, Incisions and Invasive Line Sites for Redness, Drainage and Edema; Assess IV Sites per Hospital Policy; Monitor Lab and Test Results and Notify Provider of Abnormal Findings; Assess Nutritional Status and Promote Good Nutrition (Ileana Rasmussen RN) Outcome: Patient will Remain Free of Infection (Ileana Rasmussen RN) Status: Ongoing (Ileana Rasmussen RN) Outcome: Infection will be Recognized Early to Allow for Prompt Treatment (Ileana Rasmussen RN) Status: Ongoing (Ileana Rasmussen RN) Outcome: Patient will have Vital Signs Within Expected Range (Ileana Rasmussen RN) Status: Ongoing (Ileana Rasmussen RN) Impaired Skin Integrity State: Risk For (Ileana Rasmussen RN) Related To: Vaginal Delivery (Ileana Rasmussen RN) Goal(s): Patient will Maintain Optimal Skin Integrity, Free of Breakdown, Injury or Infection (Ileana Rasmussen RN) Interventions: Complete Screening for Pressure Ulcer Risk and Initiate Protocol per Hospital Policy; Monitor Site of Skin Impairment for Color Changes, Redness, Swelling, Warmth, Pain or Other Signs of Infection; Encourage and Assist with Position Changes; Monitor Patient's Mobility Status; Provide Adequate Nutrition and Fluids; Teach Patient Appropriate Hygienic Care; Teach Patient/Family Skin Care Management (Ileana Rasmussen RN) Outcome: Patient will not have Evidence of Injury Such as Skin Breakdown, Scrapes, Cuts, or Bruising (Ileana Rasmussen RN) Status: Ongoing (Ileana Rasmussen RN) Outcome: Patient will Report Any Altered Sensation or Pain at Site of Skin Impairment (Ileana Rasmussen RN) Status: Ongoing (Ileana Rasmussen RN) Outcome: Patients Incisions and Wounds will be without Signs or Symptoms of Infection (Ileana Rasmussen RN) Status: Ongoing (Ileana Rasmussen RN) Outcome: Patient will Demonstrate Understanding of Plan to Heal Skin and Prevent Reinjury and Verbalize Risk Factors (Ileana Rasmussen RN) Status: Ongoing (Ileana Rasmussen RN)
[2016-06-17 07:10] LABS: HEMATOCRIT 41.7 % (36.0-47.0); HEMOGLOBIN 13.8 g/dL (12.0-15.5); HGB HCT DIFFERENCE -0.3; MEAN CORPUSCULAR HEMOGLOBIN 29.6 pg (27.0-33.4); MEAN CORPUSCULAR HGB CONC 33.1 g/dL (32.0-36.0); MEAN CORPUSCULAR VOLUME 89 fl (80-97); RED BLOOD COUNT 4.67 10^6/uL (3.72-5.28); RED CELL DISTRIBUTION WIDTH 13.8 % (11.5-14.0); WHITE BLOOD COUNT 13.8 10^3/uL (4.0-10.5)
--- NOTE | 2016-06-17 09:11 | PDOC PROGRESS REPORT ---
Subjective-OB Subjective: Post Delivery Day: 30 year old. Denies any needs at this time well offers no complaints precipituous delivery ff@[id number] mild lochia continue support Physical Exam (OB) Vital Signs: Temp Pulse Resp BP Pulse Ox 98.5 F 72 16 98/52 L 98 06/16/16 20:05 06/16/16 20:05 06/16/16 20:05 06/16/16 20:05 06/16/16 12:04 Intake & Output 06/16/16 06/17/16 06/18/16 06:59 06:59 06:59 Weight 92.75 kg - Lochia Lochia Amount: Scant < 10 ml Lochia Color: Rubra/Red - Abdomen Description: Tender, Soft Hernia Present: No Fundal Description: Firm, Midline Fundal Height: u/u - u/2 Objective-Diagnostic Laboratory: 06/17/16 06:58 06/16/16 06/16/16 06/16/16 09:30 10:01 10:01 WBC 11.5 H RBC 4.35 Hgb 13.1 Hct 38.8 MCV 89 MCH 30.0 MCHC 33.7 RDW 13.9 Plt Count 158 Seg Neutrophils % 84.7 H Lymphocytes % 11.8 L Monocytes % 3.1 Eosinophils % 0.2 Basophils % 0.2 Absolute Neutrophils 9.8 H Absolute Lymphocytes 1.4 Absolute Monocytes 0.4 Absolute Eosinophils 0.0 Absolute Basophils 0.0 Urine Color YELLOW Urine Appearance SLIGHTLY-CLOUDY Urine pH 5.0 Ur Specific [place] 1.019 Urine Protein 100 H Urine Glucose (UA) NEGATIVE Urine Ketones NEGATIVE Urine Blood SMALL H Urine Nitrite NEGATIVE Ur Leukocyte Esterase NEGATIVE Blood Type A POSITIVE Antibody Screen NEGATIVE 06/17/16 06:58 WBC 13.8 H RBC 4.67 Hgb 13.8 Hct 41.7 MCV 89 MCH 29.6 MCHC 33.1 RDW 13.8 Plt Count 172 Seg Neutrophils % Lymphocytes % Monocytes % Eosinophils % Basophils % Absolute Neutrophils Absolute Lymphocytes Absolute Monocytes Absolute Eosinophils Absolute Basophils Urine Color Urine Appearance Urine pH Ur Specific [place] Urine Protein Urine Glucose (UA) Urine Ketones Urine Blood Urine Nitrite Ur Leukocyte Esterase Blood Type Antibody Screen
[2016-06-17] MEDS: FERROUS SULFATE 325 MG TABLET PO SCH ×2 (09:54→18:58)
[2016-06-17] MEDS: PRENATAL VITAMIN W-O CA NO5/FE FUMARATE/FA CAPSULE PO SCH (09:54)
[2016-06-17] MEDS: DOCUSATE SODIUM 100 MG CAPSULE PO SCH ×2 (09:54→18:58)
[2016-06-17] MEDS: SENNOSIDES/DOCUSATE 8.6-50 MG 1 EACH TABLET PO SCH (09:54)
[2016-06-17] MEDS: ACETAMINOPHEN WITH CODEINE #3 TABLET PO PRN ×2 (12:58→20:25)
[2016-06-18] MEDS: IBUPROFEN 800 MG TABLET PO SCH (05:09)
[2016-06-18 09:00] VITALS: BP 112/64
[2016-06-18] MEDS: DOCUSATE SODIUM 100 MG CAPSULE PO SCH (09:06)
[2016-06-18] MEDS: PRENATAL VITAMIN W-O CA NO5/FE FUMARATE/FA CAPSULE PO SCH (09:07)
[2016-06-18] MEDS: FERROUS SULFATE 325 MG TABLET PO SCH (09:07)
[2016-06-18] MEDS: SENNOSIDES/DOCUSATE 8.6-50 MG 1 EACH TABLET PO SCH (09:08)
--- NOTE | 2016-06-18 10:37 | PDOC DISCHARGE SUMMARY ---
Final Diagnosis Discharge Date: 06/18/16 Discharge Data - Discharge Medication Home Medications: Vit#96/Ferrous Fum/FA [ Tablet] 1 each PO DAILY 01/18/14 Ibuprofen [Motrin 800 mg Tablet] 800 mg PO Q8 #60 tablet 06/18/16 Reason(s) for Admission: Onset of Labor Procedures: NST Intrapartum Procedure(s): Spontaneous Vaginal Delivery Complication(s): Laceration-Periurethral Laceration-Degree: 1st - Diagnosis Test Laboratory: Temp Pulse Resp BP Pulse Ox 97.8 F 87 15 112/64 98 06/17/16 20:42 06/18/16 08:42 06/18/16 08:42 06/18/16 08:42 06/18/16 08:42 06/16/16 06/16/16 06/17/16 09:30 10:01 06:58 RBC 4.35 4.67 Hgb 13.1 13.8 Hct 38.8 41.7 Urine Opiates Screen NEGATIVE - Discharge information/Instructions Discharge Activity: Activity As Tolerated, No Lifting Over 10 Pounds, Pelvic Rest, No tub bath Discharge Diet: Regular Disposition: HOME, SELF-CARE Follow up with: [facility] in: 4, Weeks
--- NOTE | 2016-07-10 17:31 | Delivery Summary ---
Del Sum A-C Datetime Report Generated by CPN: 07/10/2016 17:30 ADMISSION DATA Chief Complaint: Uterine Contractions Indication for Induction: Not Applicable Admission Impression: Term, Intrauterine ; Active Labor; Intact Membranes DELIVERY PERSONNEL Delivery Doctor:: Victor Hugo Griggs, DO Labor and Delivery Nurse:: Marleny Vidal RNcommunity center worker Nurse:: Terri Vega RN Nursery Nurse:: Renae Phillips RN Nursery Nurse:: Ileana Rasmussen RN Student Observers:: SN Anabel Diazub Tech/CRITICAL CARE TECHNICIAN: Laurita Cummings, ALUMINUM SHINGLE ROOFER MATERNAL INFORMATION Delivery Anesthesia: None Medications After Delivery: Pitocin Bolus-Please Comment Meds After Delivery Comment: pitocin 20 units in 1000mL NSS Estimated Blood Loss (ml): 300 Maternal Complications: Precipitous Labor (<3hrs) Provider Comments: of female in DINESH position Tight nuchal cord x2, reduced following delievery of Placenta delevered spontaneous and intact with 3v cord Fundus firm LABOR SUMMARY EDC: 06/21/2016 00:00 No. Babies in Womb: 1 Attempted: No Labor Anesthesia: None LABOR INFORMATION Reason for Induction: Not Applicable Onset of Labor: 06/16/2016 07:30 Complete Dilatation: 06/16/2016 09:09 Oxytocin: N/A Group B Beta Strep: positive Antibiotics # of Doses: 1 Antibiotics Time of Last Dose: 0858 Name of Antibiotic Given: PCN Steroids Given: None Reason Steroids Not Administered: Not Applicable MEMBRANES Membranes Rupture Method: Artificial Rupture of Membranes: 06/16/2016 09:13 Length of Rupture (hr): 0.12 Amniotic Fluid Color: Clear Amniotic Fluid Amount: Small Amniotic Fluid Odor: Normal STAGES OF LABOR Stage 1 hr: 1 Stage 1 min: 39 Stage 2 hr: 0 Stage 2 min: 11 Stage 3 hr: 0 Stage 3 min: 3 Total Time in Labor hr: 1 Total Time in Labor min: 53 VAGINAL DELIVERY Episiotomy: None Laceration Extension: First Degree Laceration Type: Periurethral Laceration Repair: Yes Laceration Repair Note: repaired with 3-0 chromic in usual fashion with good hemostasis Sponge Count Correct: Yes Sharps Count Correct: Yes CSECTION DELIVERY Primary Indication: N/A Secondary Indication: N/A CSection Incidence: N/A Labor: N/A Elective: N/A CSection Incision: N/A BABY A INFORMATION Delivery Date/Time: 06/16/2016 09:20 Method of Delivery: Vaginal Born in Route : No : N/A Forceps: N/A Vacuum Extraction: N/A Shoulder Dystocia : No PRESENTATION/POSITION BABY A Presentation: Cephalic Cephalic Presentation: Vertex Vertex Position: Left Occipital Anterior Breech Presentation: N/A PLACENTA INFORMATION BABY A Placenta Delivery Time : 06/16/2016 09:23 Placenta Method of Delivery: Spontaneous Placenta Status: Delivered SCORES BABY A Heart Rate 1 min: >100 bpm Resp Effort 1 min: Good Cry Reflex Irritability 1 min: Cough or Sneeze or Pulls Away Muscle Tone 1 min: Some Flexion of Extremities Color 1 min: Blue/Pale Resuscitation Effort 1 min: Tactile Stimulation SCORE 1 MIN: 7 Heart Rate 5 min: >100 bpm Resp Effort 5 min: Good Cry Reflex Irritability 5 min: Cough or Sneeze or Pulls Away Muscle Tone 5 min: Some Flexion of Extremities Color 5 min: Body [place], Extremities Blue Resuscitation Effort 5 min: Tactile Stimulation SCORE 5 MIN: 8 INFANT INFORMATION BABY A Gestational Age at Delivery: 39.2 Gestational Status: Full Term- 39- 40.6 Weeks Infant Outcome : Liveborn Condition : Stable Sex: Female IDENTIFICATION BABY A Verification Date/Time: 06/16/2016 11:04 ID Band Number: [id number] Mother's Name Verified: Yes RN Verifying Infant: Christiana Vega RN/ D Bellavaabele RN WEIGHT/LENGTH BABY A Infant Birthweight (gm): 3362 Infant Weight (lb): 7 Weight (oz): 7 Length (in): 21.00 Infant Length (cm): 53.34 CORD INFORMATION BABY A No. Cord Vessels: 3 Nuchal Cord : Around Neck x2, Tight ASSESSMENT BABY A Infant Complications: None Physical Findings at Delivery: Within Normal Limits Infant Respirations: Appears Normal Skin to Skin: Yes Skin to Skin Time (min): 60 Director Heart/ALS Called : No Care By: Adriana Phillips RN Transferred To: Remains with Mother BABY B INFORMATION : N/A SIGNATURES Signature: with User ID: [email or web address]
== END 2016-06-18 12:43 | disposition home or self-care (01) | DRG 775 ==
LOC: LC 08:37 → LR 08:58 → 2S 12:01
PROVIDERS: ADMIT Obstetrics & Gynecology; ATTEND Obstetrics & Gynecology
PROC: 10E0XZZ Delivery of Products of Conception, External Approach (ICD-10-PCS; principal; 2016-06-16)
PROC: 0HQ9XZZ Repair Perineum Skin, External Approach (ICD-10-PCS; 2016-06-16)
DX: O24.420 Gestational diabetes mellitus in childbirth, diet controlled (principal); O62.3 Precipitate labor; O71.82 Other specified trauma to perineum and vulva; O99.824 Streptococcus B carrier state complicating childbirth; O69.1XX0 Labor and delivery complicated by cord around neck, with compression, not applicable or unspecified; Z37.0 Single live birth; Z3A.39 39 weeks gestation of pregnancy
CPT/HCPCS: 36415; 80307; 81005; 85025; 85027; 86592; 86850; 86900; 86901; J2540; J2590; J3490

== ENCOUNTER 2017-10-26 17:05 | Outpatient (CLI) | payer OTHER ==
[2017-10-26 18:17] LABS: APPEARANCE,URINE CLEAR; BILIRUBIN,URINE NEGATIVE (NEGATIVE); COLOR,URINE STRAW; GLUCOSE, URINE NEGATIVE (NEGATIVE); KETONES,URINE NEGATIVE (NEGATIVE); LEUKOCYTE ESTERASE,URINE NEGATIVE (NEGATIVE); NITRITE,URINE NEGATIVE (NEGATIVE); PROTEIN,URINE NEGATIVE (NEGATIVE); URINE SPECIFIC GRAVITY 1.004; UROBILINOGEN,URINE NEGATIVE mg/dL (<2.0)
[2017-10-26 18:35] LABS: URINE AMPHETAMINES SCREEN NEGATIVE; URINE BARBITURATES SCREEN NEGATIVE; URINE BENZODIAZEPINES SCREEN NEGATIVE; URINE COCAINE SCREEN NEGATIVE; URINE MARIJUANA (THC) SCREEN NEGATIVE; URINE METHADONE SCREEN NEGATIVE; URINE PHENCYCLIDINE SCREEN NEGATIVE
== END 2017-10-26 18:50 | disposition home or self-care (01) ==
LOC: LC 17:05
PROVIDERS: ATTEND Obstetrics & Gynecology Gynecology
PROC: 4A1HXCZ Monitoring of Products of Conception, Cardiac Rate, External Approach (ICD-10-PCS; principal; 2017-10-26)
DX: Z34.93 Encounter for supervision of normal pregnancy, unspecified, third trimester (principal)
CPT/HCPCS: 80307; 81001

== ENCOUNTER 2017-12-23 03:52 | Inpatient (IN) | payer OTHER ==
[2017-12-23] MEDS ORDERED: LIDOCAINE 1% INJ-PF (10 MG/ML) 30 ML SDV ONE (03:58)
[2017-12-23] MEDS ORDERED: MISOPROSTOL 0.2 MG TABLET ONE (03:58)
[2017-12-23] MEDS ORDERED: OXYTOCIN 10 UNIT/ML VIAL ONE (03:58)
[2017-12-23] MEDS ORDERED: OXYTOCIN/NORMAL SALINE 20 UNIT/1,000 ML RTUINJ ONE (03:58)
[2017-12-23] MEDS ORDERED: RINGERS SOLUTION,LACTATED 1,000 ML IV PRN (04:00)
[2017-12-23] MEDS ORDERED: RINGERS SOLUTION,LACTATED 1,000 ML IV ONE (04:15)
[2017-12-23 04:38] LABS: ABSOLUTE EOSINOPHILS # (AUTO) 0.1 10^3/uL (0.0-0.6); ABSOLUTE LYMPHOCYTES (AUTO) 2.4 10^3/uL (0.5-4.7); ABSOLUTE MONOCYTES (AUTO) 0.6 10^3/uL (0.1-1.4); ABSOLUTE NEUT (AUTO) 6.3 10^3/uL (1.7-8.2); BASOPHILS % (AUTO) 0.4 % (0-2); EOSINOPHILS % (AUTO) 0.8 % (0-6); HEMATOCRIT 38.8 % (36.0-47.0); HEMOGLOBIN 13.2 g/dL (12.0-15.5); LYMPHOCYTES % (AUTO) 25.6 % (13-45); MEAN CORPUSCULAR HEMOGLOBIN 29.7 pg (27.0-33.4); MEAN CORPUSCULAR HGB CONC 33.9 g/dL (32.0-36.0); MEAN CORPUSCULAR VOLUME 87 fl (80-97); MONOCYTES % (AUTO) 6.7 % (3-13); PLATELET COUNT 188 10^3/uL (150-450); RED BLOOD COUNT 4.44 10^6/uL (3.72-5.28); RED CELL DISTRIBUTION WIDTH 14.5 % (11.5-14.0); SEGMENTED NEUTROPHILS % (AUTO) 66.5 % (42-78); TOTAL CELLS COUNTED % (AUTO) 100 %; WHITE BLOOD COUNT 9.4 10^3/uL (4.0-10.5)
[2017-12-23] MEDS ORDERED: ACETAMINOPHEN WITH CODEINE #3 TABLET PO PRN ×2 (05:14)
[2017-12-23] MEDS ORDERED: OXYTOCIN/NORMAL SALINE 20 UNIT/1,000 ML RTUINJ IV PRN (05:14)
[2017-12-23] MEDS ORDERED: MEASLES,MUMPS&RUBELLA VACC/PF 0.5 ML VIAL SUBCUT PRN (05:14)
[2017-12-23] MEDS ORDERED: DIBUCAINE 1% OINTMENT 28 GM TP PRN (05:14)
[2017-12-23] MEDS ORDERED: BENZOCAINE/MENTHOL AEROSOL SPRAY 56 ML TOP PRN (05:14)
[2017-12-23] MEDS ORDERED: ZOLPIDEM TARTRATE 5 MG TABLET PO PRN (05:14)
[2017-12-23] MEDS ORDERED: DIPH/PERTUSS(ACELL)/TETANUS VAC/PF 0.5 ML SYR (>=10YO) IM PRN (05:14)
--- NOTE | 2017-12-23 05:22 | Admission Physical ---
Datetime Report Generated by CPN: 12/23/2017 05:21 CURRENT ADMISSION Chief Complaint: Uterine Contractions Admit Impression : Term, Intrauterine Admit Plan: Admit to Unit; Initiate Labor Protocol ALLERGIES Medication Allergies: No Medication Allergies: No Known Allergies (10/26/2017) Latex: No Latex Allergies OBSTETRICAL HISTORY EDC: 12/28/2017 00:00 : 3 Para: 2 Term: 2 : 0 SAB: 0 IAB: 0 Ectopic: 0 Livin Cesareans: 0 VBACs: 0 Multiple Births: 0 Gestational Diabetes: Yes Rh Sensitization: No Incompetent Cervix: No ROD: No Infertility: No ART Treatment: No Uterine Anomaly: No IUGR: No Hx Previous C/S: No Macrosomia: No Hx Loss/Stillborn: No PIH: No Hx : No Placenta Previa/Abruption: No Depression/PP Depression: No PTL/PROM: No Post Hemorrhage: No SEE RECORDS Alcohol: No Marijuana : No Cocaine: No Other Illicit Drugs: No Cigarettes: Never Smoker. [id number] MEDICAL HISTORY Diabetes: Yes Diabetes Type: Gestational Diabetes Blood Transfusion: No Pulmonary Disease (Asthma, TB): No Breast Disease: No Hypertension: No Label Tacker Surgery: No Heart Disease: No Hosp/Surgery: No Autoimmune Disorder: No Anesthetic Complications: No Kidney Disease: No Abnormal Pap Smear: No Neuro/Epilepsy: No Psychiatric Disorders: No Other Medical Diseases: No Hepatitis/Liver Disease: No Significant Family History: No Varicosities/Phlebitis: No Trauma/Violence : No Thyroid Dysfunction: No INFECTIOUS HISTORY Gonorrhea: No Genital Herpes: No Chlamydia: No Tuberculosis: No Syphilis: No Hepatitis: No HIV/AIDS Exposure: No Rash or Viral Illness: No HPV: Yes PHYSICAL EXAM General: Normal HEENT: Normal Neurologic: Normal Thyroid: Normal Heart: Normal Lungs: Normal Breast: Normal Back: Normal Abdomen: Normal Genitourinary Exam: Normal Extremities: Normal DTRs: Normal Pelvic Type: Adequate Vital Signs: Reviewed VAGINAL EXAM Dilatation: 5 Effacement: 90% Station: -2 Contraction Comments: q 2-3 minutes MEMBRANES Membranes: Intact FETUS A EGA: 39.2 Monitoring: External US FHR- Baseline: 130s Decelerations: None FHR Category: Category I Presentation: Vertex PLANS FOR LABOR AND DELIVERY Labor and Delivery: Plan Pain Management: Natural Feeding Preference: Breast Benefit of Breast Feed Discussed: Yes Circumcision: Yes INFORMED CONSENT Signature: with User ID: [email or web address]
[2017-12-23] MEDS ORDERED: IBUPROFEN 800 MG TABLET ONE (05:23)
[2017-12-23] MEDS: IBUPROFEN 800 MG TABLET PO SCH ×3 (05:28→21:22)
[2017-12-23] MEDS: PRENATAL VITAMIN W DHA CAPSULE PO SCH (09:37)
[2017-12-23] MEDS: FERROUS SULFATE 325 MG TABLET PO SCH ×2 (09:37→17:19)
[2017-12-23] MEDS: DOCUSATE SODIUM 100 MG CAPSULE PO SCH ×2 (09:37→17:19)
[2017-12-23] MEDS: SENNOSIDES/DOCUSATE 8.6-50 MG 1 EACH TABLET PO SCH (09:37)
[2017-12-24] MEDS: IBUPROFEN 800 MG TABLET PO SCH ×2 (06:03→13:34)
[2017-12-24 07:27] LABS: HEMATOCRIT 35.5 % (36.0-47.0); MEAN CORPUSCULAR HGB CONC 33.8 g/dL (32.0-36.0); MEAN CORPUSCULAR VOLUME 89 fl (80-97); PLATELET COUNT 122 10^3/uL (150-450); RED CELL DISTRIBUTION WIDTH 14.4 % (11.5-14.0); WHITE BLOOD COUNT 8.9 10^3/uL (4.0-10.5)
[2017-12-24 07:59] VITALS: BP 101/61
--- NOTE | 2017-12-24 08:59 | PDOC PROGRESS REPORT ---
Subjective-OB Progress Note for:: 12/24/17 Subjective: Doing well, no c/o, holding baby, voiding Physical Exam (OB) Vital Signs: Temp Pulse Resp BP Pulse Ox 97.8 F 63 16 101/61 98 12/24/17 08:42 12/24/17 08:42 12/24/17 08:42 12/24/17 08:42 12/24/17 08:42 - Lochia Lochia Amount: Small 10-25 ml Lochia Color: Rubra/Red - Abdomen Description: Soft, Round Hernia Present: No Fundal Description: Firm, Midline Fundal Height: u/u - u/2 Objective-Diagnostic Laboratory: 12/24/17 07:01 12/24/17 07:01 WBC 8.9 RBC 4.00 Hgb 12.0 Hct 35.5 L MCV 89 MCH 30.0 MCHC 33.8 RDW 14.4 H Plt Count 122 L Assessment and Plan(PN) - Assessment and Plan (1) Vaginal delivery Is this a current diagnosis for this admission?: Yes - Time Spent with Patient Time with patient: Less than 15 minutes Medications reviewed and adjusted accordingly: Yes - Disposition Anticipated Discharge: Home Within: within 24 hours
--- NOTE | 2017-12-24 09:20 | PDOC DISCHARGE SUMMARY ---
Final Diagnosis Discharge Date: 12/24/17 - Final Diagnosis (1) Vaginal delivery Is this a current diagnosis for this admission?: Yes Discharge Data - Discharge Medication Home Medications: 95/Iron Fum/Folic/Dha [ + Dha Combo Pack] 1 each PO DAILY 12/23 Gestational Age: 37.6 Reason(s) for Admission: Onset of Labor Procedures: Ultrasound Intrapartum Procedure(s): Spontaneous Vaginal Delivery - Diagnosis Test Laboratory: Temp Pulse Resp BP Pulse Ox 97.8 F 63 16 101/61 98 12/24/17 08:42 12/24/17 08:42 12/24/17 08:42 12/24/17 08:42 12/24/17 08:42 12/23/17 12/24/17 04:15 07:01 RBC 4.44 4.00 Hgb 13.2 12.0 Hct 38.8 35.5 L - Discharge information/Instructions Discharge Activity: Activity As Tolerated, Pelvic Rest Discharge Diet: As Tolerated, Regular Disposition: HOME, SELF-CARE Follow up with: [facility] in: 2, Weeks
[2017-12-24] MEDS: SENNOSIDES/DOCUSATE 8.6-50 MG 1 EACH TABLET PO SCH (10:30)
[2017-12-24] MEDS: FERROUS SULFATE 325 MG TABLET PO SCH ×2 (10:30→17:56)
[2017-12-24] MEDS: DOCUSATE SODIUM 100 MG CAPSULE PO SCH ×2 (10:30→17:56)
[2017-12-24] MEDS: PRENATAL VITAMIN W DHA CAPSULE PO SCH (10:30)
--- NOTE | 2018-01-06 12:40 | Delivery Summary ---
Del Sum A-C Datetime Report Generated by CPN: 01/06/2018 12:39 DELIVERY PERSONNEL DELIVERY PERSONNEL: [id number] Delivery Doctor:: Dr. Polk Labor and Delivery Nurse:: Malaika Johnson RN Labor and Delivery Nurse:: Sheron Pryor RN [employer]/HOUSEKEEPER AND LAUNDRY ASSISTANT: Connie Semar, WOOD BOX MAKER MATERNAL INFORMATION Delivery Anesthesia: None Medications After Delivery: Pitocin Drip 20 Units/1000ml NSS Estimated Blood Loss (ml): 100 ml Maternal Complications: Precipitous Labor (<3hrs) Provider Comments: There was of a viable male at 0502 with an OA with nuchal cord x 1 presentation; APGARS 8@1, 9@5. Pt sustained no lacerations. LABOR SUMMARY EDC: 12/28/2017 00:00 No. Babies in Womb: 1 Attempted: No Labor Anesthesia: None LABOR INFORMATION Reason for Induction: Not Applicable Onset of Labor: 12/23/2017 03:54 Complete Dilatation: 12/23/2017 04:46 Oxytocin: N/A Group B Beta Strep: negative Antibiotics # of Doses: 0 Steroids Given: None Reason Steroids Not Administered: Not Applicable MEMBRANES Membranes Rupture Method: Artificial Rupture of Membranes: 12/23/2017 04:41 Length of Rupture (hr): 0.35 Amniotic Fluid Color: Clear Amniotic Fluid Amount: Moderate Amniotic Fluid Odor: Normal STAGES OF LABOR Stage 1 hr: 0 Stage 1 min: 52 Stage 2 hr: 0 Stage 2 min: 16 Stage 3 hr: 0 Stage 3 min: 5 Total Time in Labor hr: 1 Total Time in Labor min: 13 VAGINAL DELIVERY Episiotomy: None Laceration #1: None Laceration Extension #1: N/A Laceration Repair: Not Applicable Sponge Count Correct: N/A Sharps Count Correct: N/A CSECTION DELIVERY Primary Indication: N/A Secondary Indication: N/A CSection Incidence: N/A Labor: N/A Elective: N/A CSection Incision: N/A BABY A INFORMATION Delivery Date/Time: 12/23/2017 05:02 Method of Delivery: Vaginal Method of Delivery: Vaginal Method of Delivery: Vaginal Born in Route : No : N/A Forceps: N/A Forceps: N/A Vacuum Extraction: N/A Vacuum Extraction: N/A Shoulder Dystocia : No Shoulder Dystocia : No PRESENTATION/POSITION BABY A Presentation: Cephalic Cephalic Presentation: Vertex Vertex Position: Right Occipital Anterior Breech Presentation: N/A PLACENTA INFORMATION BABY A Placenta Delivery Time : 12/23/2017 05:07 Placenta Method of Delivery: Spontaneous Placenta Method of Delivery: Spontaneous Placenta Status: Delivered SCORES BABY A Heart Rate 1 min: >100 bpm Resp Effort 1 min: Good Cry Reflex Irritability 1 min: Cough or Sneeze or Pulls Away Muscle Tone 1 min: Active Motion Color 1 min: Blue/Pale Resuscitation Effort 1 min: Tactile Stimulation SCORE 1 MIN: 8 Heart Rate 5 min: >100 bpm Resp Effort 5 min: Good Cry Reflex Irritability 5 min: Cough or Sneeze or Pulls Away Muscle Tone 5 min: Active Motion Color 5 min: Body Pinhook, Extremities Blue Resuscitation Effort 5 min: Tactile Stimulation SCORE 5 MIN: 9 INFORMATION BABY A Gestational Age at Delivery: 39.2 Gestational Status: Full Term- 39- 40.6 Weeks Outcome : Liveborn Condition : Stable Infant Sex: Male Infant Sex: Male IDENTIFICATION BABY A Infant Verification Date/Time: 12/23/2017 05:14 ID Band Number: [id number] Mother's Name Verified: Yes RN Verifying Infant: C. Luceroilin, RN S. Lattibeaudeir WEIGHT/LENGTH BABY A Infant Birthweight (gm): 3715 Weight (lb): 8 Infant Weight (oz): 3 Infant Length (in): 20.50 Length (cm): 52.07 CORD INFORMATION BABY A No. Cord Vessels: 3 Nuchal Cord : Around Neck x1, Tight Cord Blood Taken: Yes-For Storage (Mom's Blood type +) Infant Suction: Mouth; Nose ASSESSMENT BABY A Complications: None Physical Findings at Delivery: Molding of the Head Respirations: Appears Normal Skin to Skin: Yes Machine Load Clerk/ALS Called : No Care By: Amisha Pryor, RN Transferred To: Remains with Mother BABY B INFORMATION : N/A SIGNATURES Signature: with User ID: [email or web address]
== END 2017-12-24 18:35 | disposition home or self-care (01) | DRG 775 ==
LOC: LC 03:52 → LR 04:00 → 2S 08:04
PROVIDERS: ADMIT Obstetrics & Gynecology; ATTEND Obstetrics & Gynecology
PROC: 10E0XZZ Delivery of Products of Conception, External Approach (ICD-10-PCS; principal; 2017-12-23)
PROC: 4A1HXCZ Monitoring of Products of Conception, Cardiac Rate, External Approach (ICD-10-PCS; 2017-12-23)
DX: O62.3 Precipitate labor (principal); O69.1XX0 Labor and delivery complicated by cord around neck, with compression, not applicable or unspecified; O24.429 Gestational diabetes mellitus in childbirth, unspecified control; Z3A.39 39 weeks gestation of pregnancy; Z37.0 Single live birth
CPT/HCPCS: 36415; 85025; 85027; 86592; 86850; 86900; 86901; J2590; J3490

== ENCOUNTER 2018-01-22 20:44 | Emergency (ER) | payer OTHER ==
--- NOTE | 2018-01-22 22:19 | ER Document Report ---
HPI - HPI Pain Level: 1 Notes: Patient is a 32-year-old female who presents with chief complaint of possible cellulitis to her right lower extremity. Patient reports she thinks she may have been bitten by a bug earlier today. Patient denies any fevers or other symptoms. - REPRODUCTIVE LMP: na Reproductive: REPORTS: : Past Medical History - General Information source: Patient - Social History Smoking Status: Never Smoker Frequency of alcohol use: None Drug Abuse: None Family History: Reviewed & Not Pertinent Patient has suicidal ideation: No Patient has homicidal ideation: No - Medical History Medical History: Negative Renal/ Medical History: Denies: Hx Peritoneal Dialysis Past Surgical History: Reports: Hx Oral Surgery - wisdom teeth Vertical Provider Document - CONSTITUTIONAL Notes: PHYSICAL EXAMINATION: GENERAL: Well-appearing, well-nourished and in no acute distress. HEAD: Atraumatic, normocephalic. EYES: Pupils equal round extraocular movements intact, conjunctiva are normal. ENT: Nares patent NECK: Normal range of motion LUNGS: No respiratory distress Musculoskeletal: Normal range of motion NEUROLOGICAL: Normal speech, normal gait. PSYCH: Normal mood, normal affect. SKIN: Warm, Dry, normal turgor, no rashes or lesions noted. Erythema noted to right lower extremity mild warmth felt, no area of induration, no evidence of abscess. Area of erythema marked with surgical marker. - INFECTION CONTROL TRAVEL OUTSIDE OF THE [place] IN LAST 30 DAYS: No Course - Re-evaluation Re-evalutation: Examination consistent with mild cellulitis. No drainable abscess noted. Patient will be placed on p.o. Keflex and discharged home with ED return precautions. - Vital Signs Vital signs: Temp Pulse Resp BP Pulse Ox 97.3 F 85 16 103/74 98 01/22/18 20:55 01/22/18 20:55 01/22/18 20:55 01/22/18 20:55 01/22/18 20:55 Discharge - Discharge Clinical Impression: Cellulitis Qualifiers: Site of cellulitis: unspecified site Qualified Code(s): L03.90 - Cellulitis, unspecified Condition: Stable Disposition: HOME, SELF-CARE Additional Instructions: Cellulitis You have an infection of your skin and underlying soft tissues called cellulitis. This is due to bacteria, which can enter through any break in the skin, or even through an irritated hair follicle. Untreated, cellulitis will usually worsen. Antibiotics are required. Usually, warm packs or warm soaks, and elevation of the infected area are recommended. You should start getting better within 24 to 36 hours. Most infections respond quickly to the right medication. Follow-up care is important, however, to check for abscess (boil) formation, unsuspected foreign body, or resistant infection. If you develop fever, chills, or if the area of infection is becoming rapidly more swollen or painful, call the doctor at once. Cephalexin The antibiotic you've been prescribed is a member of the cephalosporin class. This type of antibiotic covers a wide variety of infections, including those of the skin, lungs, and urinary tract. It's useful for staph infections. This antibiotic is slightly similar to the penicillin family. In rare cases , a person who is allergic to penicillin will also be allergic to this medication. If you have had a severe allergic reaction to penicillin, and have not taken this antibiotic since that time, notify your doctor. Antibiotics which cover many germs ("broad spectrum" antibiotics) are more likely to cause diarrhea or "yeast" infections. Women prone to vaginal yeast problems may suffer an attack after taking this antibiotic. In infants, oral thrush (white spots "stuck" on the cheek) or yeast diaper rash may result. See your doctor if these problems occur. Call at once if you develop itching, hives , shortness of breath, or lightheadedness. Take the antibiotic as prescribed. You were given the first dose here in the emergency department so take your second dose tomorrow morning. Keep an eye on the area of redness, if it extends outside the borders significantly please return to the emergency department or your primary care provider. Prescriptions: Cephalexin [Cephalexin 500 MG Capsule] 1 cap PO QID #28 cap Referrals: ERIK ESCOBAR MD [Primary Care Provider] - Follow up as needed
[2018-01-22] MEDS: CEPHALEXIN 500 MG CAPSULE PO ONE (22:24)
[2018-01-22 23:34] VITALS: BP 104/67
== END 2018-01-22 23:34 | disposition home or self-care (01) ==
LOC: ER 20:44
DX: L03.115 Cellulitis of right lower limb (principal)
CPT/HCPCS: 99282

== ENCOUNTER 2018-09-09 22:49 | Emergency (ER) | payer OTHER ==
[2018-09-10] MEDS ORDERED: METOCLOPRAMIDE HCL INJ/PF 10 MG/2 ML SDV IV ONE (00:50)
[2018-09-10] MEDS ORDERED: NORMAL SALINE 1000 ML 1,000 ML IV ONE (00:51)
[2018-09-10] MEDS ORDERED: DIPHENHYDRAMINE HCL 50 MG/ML VIAL IV ONE (00:51)
--- NOTE | 2018-09-10 00:55 | ER Document Report ---
ED Medical Screen (RME) - General Chief Complaint: Headache Stated Complaint: HEAD ACHE Time Seen by Provider: 09/10/18 00:50 Primary Care Provider: ERIK ESCOBAR MD [Primary Care Provider] - Follow up as needed Notes: 33-year-old female who is currently breast-feeding her baby is here with headache since yesterday afternoon. It hurts from her temples all the way through the upper part of her head. She is got light and noise sensitivity. No fevers or chills. No rash. No neck stiffness. I have treated and performed a rapid initial assessment of this patient. A comprehensive ED assessment and evaluation of the patient, analysis of test results and completion of medical decision making process will be conducted by additional ED providers. PHYSICAL EXAMINATION: GENERAL: Tired appearing but nontoxic Extremities: No cyanosis, clubbing, or edema b/l. NEUROLOGICAL: Normal speech, normal gait. No focal neuro deficits PSYCH: Normal mood, normal affect. TRAVEL OUTSIDE OF THE [place] IN LAST 30 DAYS: No - Related Data Allergies/Adverse Reactions: No Known Allergies Allergy (Verified 12/23/17 05:37) Past Medical History Renal/ Medical History: Denies: Hx Peritoneal Dialysis Past Surgical History: Reports: Hx Oral Surgery - wisdom teeth Physical Exam - Vital signs Vitals: Temp Pulse Resp BP Pulse Ox 98.3 F 96 18 120/81 100 09/09/18 23:17 09/09/18 23:17 09/09/18 23:17 09/09/18 23:17 09/09/18 23:17 Course - Vital Signs Vital signs: Temp Pulse Resp BP Pulse Ox 98.3 F 96 18 120/81 100 09/09/18 23:17 09/09/18 23:17 09/09/18 23:17 09/09/18 23:17 09/09/18 23:17 Doctor's Discharge - Discharge Referrals: ERIK ESCOBAR MD [Primary Care Provider] - Follow up as needed
[2018-09-10 01:47] LABS: ABSOLUTE EOSINOPHILS # (AUTO) 0.2 10^3/uL (0.0-0.6); ABSOLUTE LYMPHOCYTES (AUTO) 2.1 10^3/uL (0.5-4.7); ABSOLUTE MONOCYTES (AUTO) 0.4 10^3/uL (0.1-1.4); ABSOLUTE NEUT (AUTO) 4.7 10^3/uL (1.7-8.2); BASOPHILS % (AUTO) 0.4 % (0-2); EOSINOPHILS % (AUTO) 2.7 % (0-6); HEMATOCRIT 41.6 % (36.0-47.0); LYMPHOCYTES % (AUTO) 27.9 % (13-45); MEAN CORPUSCULAR HEMOGLOBIN 30.4 pg (27.0-33.4); MEAN CORPUSCULAR HGB CONC 33.8 g/dL (32.0-36.0); MEAN CORPUSCULAR VOLUME 90 fl (80-97); MONOCYTES % (AUTO) 5.8 % (3-13); PLATELET COUNT 249 10^3/uL (150-450); RED BLOOD COUNT 4.61 10^6/uL (3.72-5.28); RED CELL DISTRIBUTION WIDTH 12.6 % (11.5-14.0); SEGMENTED NEUTROPHILS % (AUTO) 63.2 % (42-78); TOTAL CELLS COUNTED % (AUTO) 100 %; WHITE BLOOD COUNT 7.5 10^3/uL (4.0-10.5)
[2018-09-10 01:58] LABS: ALANINE AMINOTRANSFERASE 20 U/L (9-52); ALBUMIN 4.8 g/dL (3.5-5.0); ALKALINE PHOSPHATASE 64 U/L (38-126); ANION GAP 12 (5-19); ASPARTATE AMINO TRANSFERASE 20 U/L (14-36); BILIRUBIN,DIRECT 0.2 mg/dL (0.0-0.4); BILIRUBIN,TOTAL 0.4 mg/dL (0.2-1.3); BLOOD UREA NITROGEN 17 mg/dL (7-20); CARBON DIOXIDE 28 mmol/L (22-30); CHLORIDE 102 mmol/L (98-107); GLUCOSE 91 mg/dL (75-110); POTASSIUM 4.5 mmol/L (3.6-5.0); SODIUM 141.5 mmol/L (137-145)
[2018-09-10 02:42] VITALS: BP 107/66
--- NOTE | 2018-09-10 02:44 | ER Document Report ---
ED General - General Chief Complaint: Headache Stated Complaint: HEAD ACHE Time Seen by Provider: 09/10/18 00:50 Primary Care Provider: ERIK ESCOBAR MD [Primary Care Provider] - Follow up as needed Mode of Arrival: Ambulatory Information source: Patient Notes: 33-year-old female presents with complaint of headache that started 1 day prior to arrival. Patient describes the headache is located across her forehead, pressure-like and associated with nausea but no vomiting. Patient reports the headache was gradual in onset. She denies any recent fever, visual changes, slurred speech, weakness, difficulty with ambulation trauma. Patient did receive Reglan, Benadryl and IV fluids prior to my exam. She reports resolution of her headache. TRAVEL OUTSIDE OF THE [place] IN LAST 30 DAYS: No - HPI Onset: Yesterday Onset/Duration: Gradual, Persistent Quality of pain: Achy, Throbbing Associated symptoms: Allergy/hay fever, Headache, Nausea. denies: Body/muscle aches, Chest pain, Nonproductive cough, Earache, Fever, Vomiting, Sinus pain/drainage, Shortness of breath, Sore throat Exacerbated by: Denies Relieved by: Denies Similar symptoms previously: No Recently seen / treated by doctor: No - Related Data Allergies/Adverse Reactions: No Known Allergies Allergy (Verified 12/23/17 05:37) Past Medical History - General Information source: Patient - Social History Smoking Status: Never Smoker Chew tobacco use (# tins/day): No Frequency of alcohol use: None Drug Abuse: None Lives with: Family Family History: Reviewed & Not Pertinent Patient has suicidal ideation: No Patient has homicidal ideation: No - Medical History Medical History: Negative - Past Medical History Cardiac Medical History: Reports: None Renal/ Medical History: Denies: Hx Peritoneal Dialysis Past Surgical History: Reports: Hx Oral Surgery - wisdom teeth Review of Systems - Review of Systems Notes: REVIEW OF SYSTEMS: CONSTITUTIONAL : Denies fever, chills, or sweats. Denies recent illness. Denies weight loss, recent hospitalizations. EENT: Denies visual changes, eye pain. Denies sore throat, oral lesions, difficulty swallowing. CARDIOVASCULAR: Denies chest pain. Denies palpitations. Denies lower extremity edema. RESPIRATORY: Denies cough. Denies shortness of breath, wheezing. GASTROINTESTINAL: Denies abdominal pain or distention. Denies vomiting, or diarrhea. Denies blood in vomitus, stools, or per rectum. Denies black, tarry stools. Denies constipation. GENITOURINARY: Denies difficulty urinating, painful urination, frequency, blood in urine, or vaginal discharge. MUSCULOSKELETAL: Denies back or neck pain or stiffness. Denies joint pain or swelling. SKIN: Denies rash, lesions or sores. HEMATOLOGIC : Denies easy bruising or bleeding. LYMPHATIC: Denies swollen glands. NEUROLOGICAL: Denies confusion or altered mental status. Denies loss of consciousness. Denies dizziness or lightheadedness. Denies weakness or paralysis. Denies problems difficulty with ambulation, slurred speech. Denies sensory loss, numbness, or tingling. Denies seizures. PSYCHIATRIC: Denies anxiety or stress. Denies depression, suicidal ideation, or homicidal ideation. Denies visual or auditory hallucinations. PHYSICAL EXAMINATION: GENERAL: Well-appearing, well-nourished and in no acute distress. HEAD: Atraumatic, normocephalic. EYES: Pupils equal round and reactive to light, extraocular movements intact, conjunctiva are normal. ENT: Nares patent, oropharynx clear without exudates. Moist mucous membranes. NECK: Normal range of motion, supple without lymphadenopathy LUNGS: Breath sounds clear to auscultation bilaterally and equal. No wheezes rales or rhonchi. HEART: Regular rate and rhythm without murmurs ABDOMEN: Soft, nontender, nondistended abdomen. No guarding, no rebound. No masses appreciated. Female : deferred Musculoskeletal: Normal range of motion, no pitting or edema. No cyanosis. NEUROLOGICAL: Cranial nerves grossly intact. Normal speech, normal gait. No rmal sensory, motor exams PSYCH: Normal mood, normal affect. SKIN: Warm, Dry, normal turgor, no rashes or lesions noted. Physical Exam - Vital signs Vitals: Temp Pulse Resp BP Pulse Ox 98.3 F 96 18 120/81 100 09/09/18 23:17 09/09/18 23:17 09/09/18 23:17 09/09/18 23:17 09/09/18 23:17 Course - Re-evaluation Re-evalutation: Laboratory 09/10/18 09/10/18 09/10/18 01:14 01:14 01:14 WBC 7.5 RBC 4.61 Hgb 14.0 Hct 41.6 MCV 90 MCH 30.4 MCHC 33.8 RDW 12.6 Plt Count 249 Seg Neutrophils % 63.2 Lymphocytes % 27.9 Monocytes % 5.8 Eosinophils % 2.7 Basophils % 0.4 Absolute Neutrophils 4.7 Absolute Lymphocytes 2.1 Absolute Monocytes 0.4 Absolute Eosinophils 0.2 Absolute Basophils 0.0 Sodium 141.5 Potassium 4.5 Chloride 102 Carbon Dioxide 28 Anion Gap 12 BUN 17 Creatinine 0.64 Est GFR ( Amer) > 60 Est GFR (Non-Af Amer) > 60 Glucose 91 Calcium 10.0 Total Bilirubin 0.4 Direct Bilirubin 0.2 Neonat Total Bilirubin Not Reportable Neonat Direct Bilirubin Not Reportable Neonat Indirect Bili Not Reportable AST 20 ALT 20 Alkaline Phosphatase 64 Total Protein 8.0 Albumin 4.8 Serum HCG, Qual NEGATIVE 09/10/18 02:43 Patient is reports resolution of her headache after receiving Reglan, Benadryl and IV fluids. 09/10/18 03:02 Presentation of a headache that appears to be most consistent with tension versus migrainous type headache. Headache was not maximal in onset, patient has no focal neurologic deficits, no nuchal rigidity, vital signs within normal limits, no papilledema, and patient is overall well in appearance. Based on clinical history and examination I do not suspect an acute subarachnoid hemorrhage, dural venous sinus thrombosis, acute meningitis, or intercranial mass. Given my low clinical suspicion for any acute life-threatening etiology, I do not feel advanced neuro imaging or laboratory testing is indicated at this time. Will proceed with headache cocktail and reassess. - Vital Signs Vital signs: Temp Pulse Resp BP Pulse Ox 97.6 F 74 17 107/66 97 09/10/18 02:40 09/10/18 02:40 09/10/18 02:40 09/10/18 02:40 09/10/18 02:40 - Laboratory Result Diagrams: 09/10/18 01:14 09/10/18 01:14 Discharge - Discharge Clinical Impression: Headache Qualifiers: Headache type: unspecified Headache chronicity pattern: unspecified pattern Intractability: not intractable Qualified Code(s): R51 - Headache Disposition: HOME, SELF-CARE Instructions: Headache ([facility]) Additional Instructions: You have been seen in the Emergency Department (ED) for a headache. Please use Tylenol (acetaminophen) or Motrin (ibuprofen) as needed for symptoms, but only as written on the box. As we have discussed, please follow up with your primary care doctor as soon as possible regarding today's ED visit and your headache symptoms. Call your doctor or return to the ED if you have a worsening headache, sudden and severe headache, confusion, slurred speech, facial droop, weakness or numbness in any arm or leg, extreme fatigue, or other symptoms that concern you. Referrals: ERIK ESCOBAR MD [Primary Care Provider] - Follow up as needed
== END 2018-09-10 03:00 | disposition home or self-care (01) ==
LOC: ER 22:49
DX: R51 Headache (principal); R11.0 Nausea; J30.1 Allergic rhinitis due to pollen
CPT/HCPCS: 99284; 96361; 96374; 96375; 36415; 84703; 85025; 80053; J1200; J2765; J7030

== ENCOUNTER 2018-09-10 11:50 | Emergency (ER) | payer OTHER ==
[2018-09-10] MEDS ORDERED: KETOROLAC TROMETHAMINE INJ/PF 30 MG/1 ML SDV IV ONE (12:56)
[2018-09-10] MEDS ORDERED: DIPHENHYDRAMINE HCL 50 MG/ML VIAL IV ONE (12:56)
[2018-09-10] MEDS ORDERED: PROCHLORPERAZINE EDISYLATE INJ 10 MG/2 ML VIAL IV ONE (12:56)
--- NOTE | 2018-09-10 12:58 | ER Document Report ---
ED Medical Screen (RME) - General Chief Complaint: Headache >24 hrs old Stated Complaint: HEADACHE Time Seen by Provider: 09/10/18 12:50 Primary Care Provider: ERIK ESCOBAR MD [Primary Care Provider] - Follow up as needed TRAVEL OUTSIDE OF THE [place] IN LAST 30 DAYS: No - HPI Notes: 09/10/18 12:56 Patient is a 33-year-old female no significant past medical history who presents complaining of headache to the frontal area and to the sides of her head that recurred after being seen and evaluated yesterday here in the emergency department. Patient states that she did have complete resolution with a migraine cocktail that she was given yesterday, but the pain started coming back later that evening. Patient states that she does have some light sensitivity associated as well as nausea without vomiting. Last menstrual cycle was a few weeks ago. This is not the worst headache of her life and did not start as a thunderclap. Denies drug allergies. No other concerns or complaints. Denies any fever, head injury, neck pain, changes in vision/speech/mentation/hearing, URI, sore throat, chest pain, palpitations, syncope, cough, shortness of breath, wheeze, dyspnea, abdominal pain, nausea/vomiting/diarrhea, urinary retention, dysuria, hematuria, loss of control of bowel or bladder, numbness/tingling, muscle paralysis/weakness, or rash. PHYSICAL EXAMINATION: GENERAL: Well-appearing, well-nourished and in no acute distress. A&Ox4. Answers questions appropriately. HEAD: Atraumatic, normocephalic. Non-tender. EYES: Pupils equal round and reactive to light, extraocular movements intact, sclera anicteric, conjunctiva are normal. No nystagmus. ENT: Nares patent and without discharge. oropharynx clear without exudates. No tonsilar hypertrophy or erythema. Moist mucous membranes. NECK: Normal range of motion, supple without lymphadenopathy. No rigidity/meningismus. No midline tenderness. + Mild tenderness to the C paraspinal muscles bilaterally as well as the trapezius muscles. LUNGS: Breath sounds clear to auscultation bilaterally and equal. No wheezes rales or rhonchi. HEART: Regular rate and rhythm without murmurs, rubs, gallops. Musculoskeletal: Ext b/l: FROM to passive/active. Strength 5+/5. No deficits noted. No bony tenderness of extremities. Extremities: No cyanosis, clubbing, or edema b/l. Peripheral pulses 2+. Cap illary refill less than 2 seconds. NEUROLOGICAL: NIH 0. GCS 15. Cranial nerves grossly intact. Normal speech, normal gait. Normal sensory, motor exams. Reflexes 2+ b/l. PSYCH: Normal mood, normal affect. SKIN: Warm, Dry, normal turgor, no rashes or lesions noted. - Related Data Allergies/Adverse Reactions: No Known Allergies Allergy (Verified 09/10/18 12:09) Past Medical History - Social History Frequency of alcohol use: Social Drug Abuse: None Renal/ Medical History: Denies: Hx Peritoneal Dialysis Past Surgical History: Reports: Hx Oral Surgery - wisdom teeth Physical Exam - Vital signs Vitals: Temp Pulse Resp BP Pulse Ox 97.9 F 98 18 126/83 H 100 09/10/18 12:13 09/10/18 12:13 09/10/18 12:13 09/10/18 12:13 09/10/18 12:13 Course - Vital Signs Vital signs: Temp Pulse Resp BP Pulse Ox 97.9 F 98 18 126/83 H 100 09/10/18 12:13 09/10/18 12:13 09/10/18 12:13 09/10/18 12:13 09/10/18 12:13 Doctor's Discharge - Discharge Referrals: ERIK ESCOBAR MD [Primary Care Provider] - Follow up as needed
--- NOTE | 2018-09-10 14:47 | ER Document Report ---
HPI - HPI Time Seen by Provider: 09/10/18 12:50 Pain Level: 5 Notes: Patient is a 33-year-old female no significant past medical history who presents complaining of headache to the frontal area and to the sides of her head that recurred after being seen and evaluated yesterday here in the emergency department. Patient states that she did have complete resolution with a migraine cocktail that she was given yesterday, but the pain started coming back later that evening. Patient states that she does have some light sensitivity associated as well as nausea without vomiting. Last menstrual cycle was a few weeks ago. This is not the worst headache of her life and did not start as a thunderclap. Denies drug allergies. No other concerns or complaints. Denies any fever, head injury, neck pain, changes in vision/speech/mentation/hearing, URI, sore throat, chest pain, palpitations, syncope, cough, shortness of breath, wheeze, dyspnea, abdominal pain, nausea/vomiting/diarrhea, urinary retention, dysuria, hematuria, loss of control of bowel or bladder, numbness/tingling, muscle paralysis/weakness, or rash. - ROS Systems Reviewed and Negative: Yes All other systems reviewed and negative - REPRODUCTIVE LMP: 08/15/18 Reproductive: DENIES: : - DERM Skin Color: Normal Past Medical History - Social History Smoking Status: Never Smoker Frequency of alcohol use: Social Drug Abuse: None Family History: Reviewed & Not Pertinent Patient has suicidal ideation: No Patient has homicidal ideation: No Renal/ Medical History: Denies: Hx Peritoneal Dialysis Past Surgical History: Reports: Hx Oral Surgery - wisdom teeth Vertical Provider Document - CONSTITUTIONAL Agree With Documented VS: Yes Notes: PHYSICAL EXAMINATION: Re-evaluation after pt's symptoms resolved and is wanting to go home. GENERAL: Well-appearing, well-nourished and in no acute distress. A&Ox4. Answers questions appropriately. HEAD: Atraumatic, normocephalic. Non-tender. EYES: Pupils equal round and reactive to light, extraocular movements intact, sclera anicteric, conjunctiva are normal. No nystagmus. ENT: EAC clear b/l. TM's intact b/l without erythema, fluid, or perforation. Nares patent and without discharge. oropharynx clear without exudates. No tonsilar hypertrophy or erythema. Moist mucous membranes. No sinus tenderness. NECK: Normal range of motion, supple without lymphadenopathy. No rigidity/meningismus. No midline tenderness. LUNGS: Breath sounds clear to auscultation bilaterally and equal. No wheezes rales or rhonchi. HEART: Regular rate and rhythm without murmurs, rubs, gallops. ABDOMEN: Soft, nontender, nondistended abdomen. No guarding, no rebound. Normal bowel sounds present. No CVA tenderness bilaterally. Musculoskeletal: Ext b/l: FROM to passive/active. Strength 5+/5. No deficits noted. No bony tenderness of extremities. Extremities: No cyanosis, clubbing, or edema b/l. Peripheral pulses 2+. Capillary refill less than 2 seconds. NEUROLOGICAL: NIH 0. GCS 15. Cranial nerves grossly intact. Normal speech, normal gait. Normal sensory, motor exams. Reflexes 2+ b/l. DALTON's negative. Pronator drift negative. Heel/reardon, finger/nose wnl. Romberg neg. PSYCH: Normal mood, normal affect. SKIN: Warm, Dry, normal turgor, no rashes or lesions noted. - INFECTION CONTROL TRAVEL OUTSIDE OF THE [place] IN LAST 30 DAYS: No Course - Re-evaluation Re-evalutation: 09/10/18 14:43 Patient is an afebrile, well-hydrated, 33-year-old female who presents to the ED with a headache, suspect tension BOSWELL's and occipital neuritis. Vitals are acceptable without any significant tachycardia, tachypnea, or hypoxia. PE is otherwise unremarkable for any focal neurological deficits. NIH 0, GCS 15, cranial nerves grossly intact. No obvious papilledema. Patient has had headaches like this in the past recently. No other labs or imaging warranted at this time based on H&P. Pt does not want any further work up at this time and is requesting to leave as her symptoms have resolved. Patient was given Toradol, Compazine, and benadryl which has resolved her headache. She is nontoxic- appearing and is tolerating p.o. without any difficulties. Low suspicion for any acute glaucoma, temporal arteritis, meningitis, intracranial hemorrhage, ischemic stroke, sepsis, or fracture at this time. Patient is aware that this condition can change from initial presentation and that she needs to monitor symptoms closely for any acute changes. Recheck with your PCM/neurologist in 3- 5 days. Return to the ED with any worsening/concerning symptoms otherwise as reviewed in discharge. Patient is in agreement. Pt has an appointment tomr with her PCM. - Vital Signs Vital signs: Temp Pulse Resp BP Pulse Ox 97.9 F 98 18 126/83 H 100 09/10/18 12:13 09/10/18 12:13 09/10/18 12:13 09/10/18 12:13 09/10/18 12:13 Discharge - Discharge Clinical Impression: Headache Qualifiers: Headache type: tension-type Headache chronicity pattern: acute headache Intractability: not intractable Qualified Code(s): G44.209 - Tension-type headache, unspecified, not intractable Condition: Stable Disposition: HOME, SELF-CARE Instructions: Headache ([facility]) Additional Instructions: Rest, Ice/cool compress Tylenol/ibuprofen as needed Light stretches daily Strength exercises as able Moist heat and massage may help F/u with your PCP in 3-5 days for a recheck Consider consult(s) with Neurology for ongoing/worsening symptoms Return to the ED with any worsening symptoms and/or development of fever, headache, changes in behavior/mentation/vision/speech, chest pain, palpitations, syncope, shortness of breath, trouble breathing, abdominal pain, n/v/d, blood in stool/urine, loss of control of bowel/bladder, urinary retention, muscle wea kness/paralysis, saddle anesthesia, numbness/tingling, or other worsening symptoms that are concerning to you. Prescriptions: Butalb/Acetaminophen/Caffeine [Fioricet (50-325-40 mg) Tablet] 1 - 2 tab PO Q4H #20 tab Referrals: MERCEDES ALVARADO MD [NO LOCAL MD] - Follow up as needed ERIK ESCOBAR MD [Primary Care Provider] - 09/14/18
[2018-09-10 14:55] VITALS: BP 128/78
== END 2018-09-10 14:53 | disposition home or self-care (01) ==
LOC: ER 11:50
DX: G44.209 Tension-type headache, unspecified, not intractable (principal)
CPT/HCPCS: 99283; 96374; 96375; J1200; J1885; J0780

== ENCOUNTER 2018-09-12 07:53 | Emergency (ER) | payer OTHER ==
[2018-09-12] MEDS ORDERED: NORMAL SALINE 1000 ML 1,000 ML IV ONE (08:30)
[2018-09-12] MEDS ORDERED: DIPHENHYDRAMINE HCL 50 MG/ML VIAL IV ONE (08:30)
[2018-09-12] MEDS ORDERED: KETOROLAC TROMETHAMINE INJ/PF 30 MG/1 ML SDV IV ONE ×2 (08:30→09:47)
[2018-09-12] MEDS ORDERED: PROCHLORPERAZINE EDISYLATE INJ 10 MG/2 ML VIAL IV ONE (08:30)
--- NOTE | 2018-09-12 08:41 | ER Document Report ---
ED Headache - General Chief Complaint: Headache >24 hrs old Stated Complaint: HEADACHE Time Seen by Provider: 09/12/18 08:11 Primary Care Provider: ERIK ESCOBAR MD [ACTIVE STAFF] - Follow up as needed Mode of Arrival: Ambulatory Information source: Patient, [facility] Records Notes: This 33-year-old female patient comes emergency room with severe frontal headache. She reports her headaches began on 09/09/2018. She was seen in the emergency room late that evening and just after midnight received IV Benadryl and Reglan with resolution of her headaches. She was back 12 hours later on 09/10/2018 and received IV Benadryl Compazine and Toradol. She again had resolution of her headache and was discharged with a prescription for Fioricet. The headache came back and she saw her primary care provider on 09/11/2018 and received a prescription for Robaxin. There was completely normal lab work done on the first visit for these headaches. She reports she has been nauseous for the past 4 days, and had some vomiting this morning. She did take her Robaxin and Fioricet this morning without relief. There is photophobia, and minimal discomfort from loud sounds if they are a particular pitch. The patient did deliver in December 2017, and is currently breast-feeding. She brought her pump with her in case she receives medication She reports she has never had headaches before these headaches started 4 days ago. TRAVEL OUTSIDE OF THE [place] IN LAST 30 DAYS: No - Related Data Allergies/Adverse Reactions: No Known Allergies Allergy (Verified 09/10/18 12:09) Past Medical History - General Information source: Patient, [facility] Records - Social History Smoking Status: Never Smoker Cigarette use (# per day): No Chew tobacco use (# tins/day): No Smoking Education Provided: No Frequency of alcohol use: None Drug Abuse: None Lives with: Family Family History: Reviewed & Not Pertinent Patient has suicidal ideation: No Patient has homicidal ideation: No Past Surgical History: Reports: Hx Oral Surgery - wisdom teeth, Other - Hemorrhoid surgery at age 21 Review of Systems - Review of Systems Constitutional: No symptoms reported EENT: No symptoms reported Cardiovascular: No symptoms reported Respiratory: No symptoms reported Gastrointestinal: No symptoms reported Genitourinary: No symptoms reported Female Genitourinary: Last menstrual period - 08/15/2018 Musculoskeletal: No symptoms reported Skin: No symptoms reported Hematologic/Lymphatic: No symptoms reported Neurological/Psychological: No symptoms reported Physical Exam - Vital signs Vitals: Temp Pulse Resp BP Pulse Ox 97.8 F 92 16 112/73 99 09/12/18 07:58 09/12/18 07:58 09/12/18 07:58 09/12/18 07:58 09/12/18 07:58 Interpretation: Normal - General General appearance: Alert, Anxious In distress: Moderate Notes: The patient is on the stretcher on her knees facing the head of the bed where the backrest has been elevated. She is holding her forehead and crying incessantly. - HEENT Head: Normocephalic, Atraumatic, Tenderness - There is some tenderness to the temporal and forehead muscles. Eyes: Normal - Eyes are normal in appearance, there is some photophobia, there is some tenderness to palpate the globes with the left being slightly more than right. Pupils: PERRL Sinus: Tenderness - There is some mild tenderness to palpate over the maxillary sinuses. Neck: Normal, Supple, Other - There is only mild to minimal tenderness to palpate posterior cervical muscles going into the trapezius muscles on either side. - Respiratory Respiratory status: No respiratory distress Breath sounds: Normal - Cardiovascular Rhythm: Regular Heart sounds: Normal auscultation Murmur: No - Abdominal Inspection: Normal Bowel sounds: Normal Tenderness: Nontender - Back Back: Normal - Neurological Neuro grossly intact: Yes - Psychological Associated symptoms: Agitated, Anxious, Tearful - Skin Skin Temperature: Warm Skin Moisture: Dry Skin Color: Normal Course - Re-evaluation Re-evalutation: 09/12/18 09:46 This time patient reports that her head feels much better. I informed her about the CT findings. Palpating the temporal scalp muscles and over the maxillary sinuses is steam drier tender, which I explained would suggest that this is going to be muscle tension type headache most likely. Since her doctor started on Robaxin, I will give her an IV loading dose to ensure she is at therapeutic lev el and then reassess. 09/12/18 12:30 Patient is resting comfortably. She is smiling at this time states her headache is much better. Discharge instructions were reviewed with the patient. - Vital Signs Vital signs: Temp Pulse Resp BP Pulse Ox 97.8 F 92 16 112/73 99 09/12/18 07:58 09/12/18 07:58 09/12/18 07:58 09/12/18 07:58 09/12/18 07:58 - Diagnostic Test Radiology reviewed: Image reviewed, Reports reviewed - CT scan of the head does not show any acute abnormality. Discharge - Discharge Clinical Impression: Muscle tension headache Condition: Stable Disposition: HOME, SELF-CARE Additional Instructions: Tension Headache Your problem has been diagnosed as muscle tension headache. This very common type of headache occurs because of tightness in the muscles of the head and neck. The cause may be neck or jaw joint problems, but most commonly the cause is emotional stress. The headache may last hours or days. The treatment of uncomplicated tension headaches is rest and pain medication. Often, the newer antiinflammatory pain medications are prescribed, as these also decrease the irritability of the painful tissues. Muscle relaxers, cold packs, or warm packs are sometimes helpful. Anti-anxiety medication or narcotics are sometimes needed temporarily, but are best avoided in the long run. Your doctor has evaluated your headache problem, and finds no evidence of a serious health problem as a cause for the headache. If your headache becomes more severe, or if new symptoms develop (such as fever, stiff neck, vomiting, or decreasing alertness) you should be re-examined by the physician. Take the Robaxin and Fioricet that were prescribed for you for your headaches. Take Aleve 2 tablets every 12 hours or ibuprofen 800 mg every 8 hours for additional relief. Try ice packs or moist heat or alternating the 2 to see what seems to help the most. Get plenty of rest and sleep. Follow-up with your regular medical doctor Friday if not improving. RETURN TO THE EMERGENCY ROOM IF ANY NEW OR WORSENING SYMPTOMS. Referrals: ERIK ESCOBAR MD [ACTIVE STAFF] - Follow up as needed
--- NOTE | 2018-09-12 09:39 | RADIOLOGY REPORT (SQ) ---
EXAM DESCRIPTION: CT HEAD WITHOUT COMPLETED DATE/TIME: 09/12/2018 9:23 am REASON FOR STUDY: New frontal headaches COMPARISON: None. TECHNIQUE: Axial images acquired through the brain without intravenous contrast. Images reviewed wi th bone, brain and subdural windows. Additional sagittal and coronal reconstructions were generated. Images stored on PACS. All CT scanners at this facility use dose modulation, iterative reconstruction, and/or weight based d osing when appropriate to reduce radiation dose to as low as reasonably achievable (ALARA). [facility]: Dose Right [facility]: CareDose [facility]: Dose Right [facility]: Teradose 4D [facility]: Smart [employer] RADIATION DOSE: CT Rad equipment meets quality standard of care and radiation dose reduction techniq ues were employed. CTDIvol: 53.2 mGy. DLP: 964 mGy-cm. mGy. LIMITATIONS: None. FINDINGS: VENTRICLES: Normal size and contour. CEREBRUM: No masses. No hemorrhage. No midline shift. No evidence for acute infarction. Normal gra y/white matter differentiation. No areas of low density in the white matter. CEREBELLUM: No masses. No hemorrhage. No alteration of density. No evidence for acute infarction. EXTRAAXIAL SPACES: No fluid collections. No masses. ORBITS AND GLOBE: No intra- or extraconal masses. Normal contour of globe without masses. CALVARIUM: No fracture. PARANASAL SINUSES: No fluid or mucosal thickening. SOFT TISSUES: No mass or hematoma. OTHER: No other significant finding. IMPRESSION: NORMAL BRAIN CT WITHOUT CONTRAST. EVIDENCE OF ACUTE STROKE: NO. COMMENT: Quality ID # [id number]: Final reports with documentation of one or more dose reduction techniques (e.g., Automated exposure control, adjustment of the mA and/or kV according to patient size, use of iterative reconstruction technique) TECHNICAL DOCUMENTATION: JOB ID: [id number] [employer]- All Rights Reserved Reading location - IP/workstation name: [email or web address]
[2018-09-12] MEDS ORDERED: METHOCARBAMOL INJ/PF 1000 MG/10 ML SDV IV ONE (09:47)
[2018-09-12] MEDS ORDERED: DEXAMETHASONE SOD PHOS INJ 10 MG/1 ML VIAL IV ONE (10:49)
[2018-09-12 12:39] VITALS: BP 99/62
== END 2018-09-12 12:39 | disposition home or self-care (01) ==
LOC: ER 07:53
DX: G44.209 Tension-type headache, unspecified, not intractable (principal)
CPT/HCPCS: 70450; J1200; J2800; J1885; J0780; J7030; J1100

== ENCOUNTER 2018-09-14 05:36 | Emergency (ER) | payer OTHER ==
[2018-09-14 06:58] VITALS: BP 107/79
[2018-09-14] MEDS ORDERED: ACETAMINOPHEN 325 MG TABLET PO ONE (09:44)
[2018-09-14] MEDS ORDERED: ACETAMINOPHEN 325 MG TABLET ONE (09:45)
[2018-09-14] MEDS ORDERED: DEXAMETHASONE 4 MG TABLET PO ONE (11:26)
[2018-09-14] MEDS ORDERED: NORMAL SALINE 1000 ML 1,000 ML IV ONE (11:26)
[2018-09-14] MEDS ORDERED: DIPHENHYDRAMINE HCL 50 MG/ML VIAL IV ONE (11:26)
[2018-09-14] MEDS ORDERED: METOCLOPRAMIDE HCL INJ/PF 10 MG/2 ML SDV IV ONE (11:26)
[2018-09-14] MEDS ORDERED: LORAZEPAM INJ 2 MG/1 ML VIAL IV ONE (11:27)
--- NOTE | 2018-09-14 11:30 | ER Document Report ---
ED General - General Chief Complaint: Headache Stated Complaint: HEADACHE,VOMITTING Time Seen by Provider: 09/14/18 11:23 Mode of Arrival: Ambulatory Information source: Patient, [facility] Records Notes: 33-year-old female with no significant past medical history presents with complaint of headache that started 5 days prior to arrival. Patient was seen in the emergency department Friday and Friday and was discharged after relief of symptoms. Patient states the headache was gradual in onset described like a band around her head now currently behind her right eye. She states yesterday it was behind her left eye and has been migrating frequently. She denies any associated fever, neck pain, trauma to the head. She has had associated nausea, vomiting and photophobia. CT of the head was obtained and negative for any acute process. TRAVEL OUTSIDE OF THE [place] IN LAST 30 DAYS: No - HPI Onset: Last week Onset/Duration: Gradual, Intermittent Quality of pain: Throbbing Severity: Moderate Associated symptoms: Headache, Nausea, Vomiting. denies: Body/muscle aches, Earache, Fever, Sinus pain/drainage, Sore throat, Weakness Exacerbated by: Denies Relieved by: Denies Similar symptoms previously: Yes Recently seen / treated by doctor: Yes - Related Data Allergies/Adverse Reactions: No Known Allergies Allergy (Verified 09/10/18 12:09) Past Medical History - General Information source: Patient, [facility] Records - Social History Smoking Status: Never Smoker Frequency of alcohol use: Occasional Drug Abuse: None Lives with: Spouse/Significant other Family History: Reviewed & Not Pertinent Patient has suicidal ideation: No Patient has homicidal ideation: No Neurological Medical History: Reports: Hx Migraine Renal/ Medical History: Denies: Hx Peritoneal Dialysis Past Surgical History: Reports: Hx Oral Surgery - wisdom teeth, Other - Hemorrhoid surgery at age 21 Review of Systems - Review of Systems Notes: REVIEW OF SYSTEMS: CONSTITUTIONAL : Denies fever, chills, or sweats. Denies recent illness. Denies weight loss, recent hospitalizations. EENT: Denies visual changes, eye pain. Denies sore throat, oral lesions, difficulty swallowing. CARDIOVASCULAR: Denies chest pain. Denies palpitations. Denies lower extremity edema. RESPIRATORY: Denies cough. Denies shortness of breath, wheezing. GASTROINTESTINAL: Denies abdominal pain or distention. Denies diarrhea. Denies blood in vomitus, stools, or per rectum. Denies black, tarry stools. Denies constipation. GENITOURINARY: Denies difficulty urinating, painful urination, frequency, blood in urine, or vaginal discharge. MUSCULOSKELETAL: Denies back or neck pain or stiffness. Denies joint pain or swelling. SKIN: Denies rash, lesions or sores. HEMATOLOGIC : Denies easy bruising or bleeding. LYMPHATIC: Denies swollen glands. NEUROLOGICAL: Denies confusion or altered mental status. Denies loss of consciousness. Denies dizziness or lightheadedness. Denies weakness or paralysis. Denies problems difficulty with ambulation, slurred speech. Denies sensory loss, numbness, or tingling. Denies seizures. PSYCHIATRIC: Denies anxiety or stress. Denies depression, suicidal ideation, or homicidal ideation. Denies visual or auditory hallucinations. Physical Exam - Vital signs Vitals: Temp Pulse Resp BP Pulse Ox 98.6 F 84 16 113/75 99 09/14/18 05:39 09/14/18 05:39 09/14/18 05:39 09/14/18 05:39 09/14/18 05:39 - Notes Notes: PHYSICAL EXAMINATION: GENERAL: Well-appearing, well-nourished and in no acute distress. HEAD: Atraumatic, normocephalic. EYES: Pupils equal round and reactive to light, extraocular movements intact, conjunctiva are normal. ENT: Nares patent, oropharynx clear without exudates. Moist mucous membranes. NECK: Normal range of motion, supple without lymphadenopathy LUNGS: Breath sounds clear to auscultation bilaterally and equal. No wheezes rales or rhonchi. HEART: Regular rate and rhythm without murmurs ABDOMEN: Soft, nontender, nondistended abdomen. No guarding, no rebound. No masses appreciated. Female : deferred Musculoskeletal: Normal range of motion, no pitting or edema. No cyanosis. NEUROLOGICAL: Cranial nerves grossly intact. Normal speech, normal gait. Normal sensory, motor exams PSYCH: Normal mood, normal affect. SKIN: Warm, Dry, normal turgor, no rashes or lesions noted. Course - Re-evaluation Re-evalutation: Temp Pulse Resp BP Pulse Ox 98.1 F 94 26 H 107/79 100 09/14/18 06:57 09/14/18 06:57 09/14/18 06:57 09/14/18 06:57 09/14/18 06:57 33-year-old female with no significant past medical history presents with complaint of headache that started 5 days prior to arrival. Patient was seen in the emergency department Friday and Friday and was discharged after relief of symptoms. Patient states the headache was gradual in onset described like a band around her head now currently behind her right eye. She states yesterday it was behind her left eye and has been migrating frequently. She denies any associated fever, neck pain, trauma to the head. She has had associated nausea, vomiting and photophobia. CT of the head was obtained and negative for any acute process. Vital signs reviewed and within normal limits. Patient does not appear toxic or dehydrated. She is in no acute distress. Patient was ordered Reglan, Benadryl and Decadron but prior to receiving these medications she is requesting discharge home says she can be seen by her primary care physician at 1 PM 09/14/18 12:21 Patient is requesting discharge home because she obtained a primary care physician appointment today at 1:00. 09/15/18 15:57 - Vital Signs Vital signs: Temp Pulse Resp BP Pulse Ox 98.1 F 94 26 H 107/79 100 09/14/18 06:57 09/14/18 06:57 09/14/18 06:57 09/14/18 06:57 09/14/18 06:57 Discharge - Discharge Clinical Impression: Headache Qualifiers: Headache type: unspecified Headache chronicity pattern: unspecified pattern Intractability: not intractable Qualified Code(s): R51 - Headache Condition: Good Disposition: HOME, SELF-CARE Instructions: Headache ([facility]) Additional Instructions: Please follow-up with your primary care physician as scheduled today. Please return to the emergency room with any fever, worsening headache, inability to tolerate food or fluids or any other symptoms concerning to you.
== END 2018-09-14 12:27 | disposition home or self-care (01) ==
LOC: ER 05:36
DX: R51 Headache (principal); H53.149 Visual discomfort, unspecified; R11.2 Nausea with vomiting, unspecified; Z86.69 Personal history of other diseases of the nervous system and sense organs
CPT/HCPCS: 99283